=== PATIENT | female | born 1930 | race African-American/Black ===

== ENCOUNTER 2017-02-02 13:26 | Emergency (ER) | payer MEDICARE | END 2017-02-02 14:40 | disposition home or self-care (01) | LOC: ERS 13:26 | DX: R11.0 Nausea (principal); G30.9 Alzheimer's disease, unspecified; F02.80 Dementia in other diseases classified elsewhere, unspecified severity, without behavioral disturbance, psychotic disturbance, mood disturbance, and anxiety; I25.2 Old myocardial infarction; I10 Essential (primary) hypertension; Z79.899 Other long term (current) drug therapy; Z86.73 Personal history of transient ischemic attack (TIA), and cerebral infarction without residual deficits | CPT/HCPCS: 93005 ==

== ENCOUNTER 2017-04-19 16:27 | Inpatient (IN) | payer MEDICARE ==
[2017-04-19 17:06] LABS: #Eosinphils 0.1 thou/uL (0.0-0.7); #Lymphocytes 1.6 thou/uL (1.20-3.40); #Monocytes 0.4 thou/uL (0.11-0.59); #Neutrophils 5.6 thou/uL (1.40-6.50); %Basophils 0.5 % (0.0-1.0); %Eosinophils 1.2 % (0.0-10.0); %Lymphocytes 20.6 % (21.0-51.0); %Monocytes 4.6 % (0.0-10.0); Hematocrit 38.9 % (36.0-47.0); Red Blood Cell (RBC) Count 3.96 mill/uL (4.20-5.40); White Blood Cell (WBC) Count 7.7 thou/uL (4.8-10.8)
[2017-04-19 17:27] LABS: ALT (SGPT) 10 U/L (8-55); AST (SGOT) 19 U/L (5-34); Alkaline Phosphatase 103 U/L (40-150); Anion Gap 14 mmol/L (10-20); BUN (Urea Nitrogen) 24 mg/dL (9.8-20.1); Bilirubin, Total 0.3 mg/dL (0.2-1.2); CK (CPK) 122 U/L (29-168); Calc. Creatinine Clearance 0 mL/min (70-130); Calcium 9.9 mg/dL (7.8-10.44); Carbon Dioxide 18 mmol/L (23-31); Chloride 110 mmol/L (98-107); Estimated GFR-MDRD 46; Globulin 3.5 g/dL (2.4-3.5); Protein, Total 7.4 g/dL (6.0-8.3)
--- NOTE | 2017-04-19 17:28 | CT ---
CT BRAIN 04/19/17 PROVIDED CLINICAL HISTORY: Syncope. FINDINGS: Comparison 06/14/15. The ventricular system is unchanged in size and morphology. There is no evidence for intracranial hem orrhage or mass effect. Extensive chronic microvascular ischemic changes are seen involving the cereb ral white matter. The extracranial soft tissues and osseous structures demonstrate no acute findings. IMPRESSION: No evidence for intracranial hemorrhage or mass effect. POS: [facility]
--- NOTE | 2017-04-19 17:30 | RAD ---
PORTABLE CHEST 04/19/17 PROVIDED CLINICAL HISTORY: Syncope. FINDINGS: Comparison 10/29/15. Cardiac and mediastinal silhouette is within normal limits. Vascular calcification involves the aorti c arch. Multiple calcified granulomata are seen. No focal consolidation, pleural fluid or pneumothora x apparent. IMPRESSION: No evidence for an acute cardiopulmonary process. POS: [facility]
[2017-04-19 17:32] LABS: Troponin I Less than 0.010 ng/mL (< 0.028)
[2017-04-19 17:47] LABS: Bilirubin Negative (Negative); Blood, Urine Negative (Negative); Glucose, Urine (Dipstick) Negative (Negative); Ketone, Urine Negative (Negative); Nitrite Negative (Negative); Protein, Urine (Dipstick) 100 mg/dL (Neg-Trace)
[2017-04-19 17:52] LABS: Bacteria/HPF None Seen HPF (None Seen); Hyaline Casts/LPF 7-10 HYALINE CAST LPF (0-3 Hyaline); RBC/HPF 0-3 HPF (0-3); Squamous Epithelial 0-3 HPF (0-3); WBC/HPF 0-3 HPF (0-3)
[2017-04-19 18:09] LABS: Renal Epithelial None Seen HPF (0-3); Transitional Epithelial NONE SEEN HPF (0-3)
[2017-04-19 21:43] VITALS: BMI 20.4
[2017-04-19] MEDS ORDERED: Ondansetron ODT 4 MG TAB SL PRN (21:44)
[2017-04-19] MEDS ORDERED: Ondansetron HCl/PF 4 MG/2 ML Vial IVP PRN (21:44)
[2017-04-19] MEDS ORDERED: Sodium Chloride 0.9% 1,000 ML IV SCH (21:45)
[2017-04-20] MEDS ORDERED: Acetaminophen 325 MG TAB PO PRN (01:09)
[2017-04-20] MEDS: Albuterol Sulfate 2.5 mg/3 ml Neb NEB SCH ×3 (01:59→03:00)
[2017-04-20] MEDS ORDERED: Haloperidol Lactate 5 MG/ML VIAL IM SCH (02:00)
--- NOTE | 2017-04-20 02:39 | HP ---
PRIMARY CARE PHYSICIAN: Jennifer Sarah M.D. CHIEF COMPLAINT: Loss of consciousness. HISTORY OF PRESENT ILLNESS: Ms. Huber is a pleasant [id number] who was seen at [facility] on 04/20/2017. Patient herself is unable to provide any significant history because of dementia. History was obtain ed from her daughter by the bedside. Patient was with another daughter earlier today, sitting on the couch when she lost consciousness. There is no history of fecal or urinary incontinence. There is no history of tonic-clonic activity. It is reported that patient was yawning quite a bit prior to pa ssing out. REVIEW OF SYSTEMS: Could not be completed, but this patient is unable to provide any significant his tory. PAST MEDICAL HISTORY: Significant for syncopal episode in 05/2015, at which time she had implantable loop recorder placed, mild coronary artery disease, TIA, hypertension, dyslipidemia, legal blindness , and degenerative joint disease. PAST SURGICAL HISTORY: Significant for right carotid endarterectomy in 2004, laparoscopic cholecyste ctomy in 2006, cardiac catheterization in 2004 that showed minimal 2-vessel coronary artery disease a nd implantable loop recorder placed in 05/2015. ALLERGIES: No known drug allergies. CURRENT MEDICATIONS: Clonidine 0.1 mg daily, simvastatin 20 mg daily, clonazepam 0.25 mg daily, nife dipine 60 mg daily. SOCIAL HISTORY: No history of tobacco use, alcohol use, or recreational drug use. CODE STATUS: I discussed code status with the patient's daughter. She is FULL CODE. PHYSICAL EXAMINATION: GENERAL: She is awake and alert, not in acute distress. She appears frail. VITAL SIGNS: Blood pressure is 183/82, pulse is 89. She is breathing at rate of 20 and saturating 9 7% on room air. She is afebrile. EYES: No scleral icterus, no conjunctival pallor. ENT: Moist mucosal membranes, no oropharyngeal erythema or exudates. NECK: Supple, nontender, normal range of movement, trachea is midline. RESPIRATORY: Accessory muscles of breathing are not active. Chest wall movements are symmetrical bi laterally. LUNGS: Clear to auscultation without wheeze, rhonchi, or crepitations. CARDIOVASCULAR: S1 and S2 are heard, regular. Peripheral pulses palpable. No carotid bruit, no per icardial rub. She has a loop recorder implanted over the left chest wall. ABDOMEN: Soft, nontender, bowel sounds heard, no hepatomegaly, no splenomegaly. NEUROLOGIC: Cranial nerves II-XII are intact, deep tendon reflexes are 2+. MUSCULOSKELETAL: Power is 5/5 in all 4 extremities. SKIN: No rashes or subcutaneous nodules. LYMPHATIC: No cervical lymphadenopathy. PSYCHIATRIC: Normal mood, normal affect, patient is oriented to person only, not to place or time. LABORATORY DATA: Ms. Huber's labs and investigations were reviewed. I reviewed her electrocardiogram , which shows normal sinus rhythm, no ST changes to suggest an acute coronary syndrome. I also revie wed her chest x-ray, which does not show any pulmonary infiltrates. She also had a CT scan of the br ain without contrast, which did not reveal any intracranial hemorrhage or mass affect. Laboratory in vestigation show normal white count, normal hemoglobin, normal platelet count, normal sodium, elevate d potassium of 5.9, elevated creatinine of 1.31, last known creatinine 1.23 on 01/29/2017, normal oriana er profile, and urinalysis, which is positive for protein and hyaline casts. ASSESSMENT AND PLAN: Ms. Huber is a pleasant 87-year-old lady who was seen at [facility] on 04/20/2017. Her problem list includes: 1. Syncope: Ms. Huber appears to have had an episode of recurrent syncope. She will be admitted to the hospital on observation status for telemetry monitoring. We will consult Cardiology Service for their opinion and help with management. We will also consult Neurology Service to rule out neurologi c cause of syncope. 2. Hyperkalemia: Her potassium is elevated. There are no EKG changes. We will treat her with Melani xalate and beta-agonist nebulizers and recheck her potassium level. 3. Alzheimer's dementia: Appears to be stable. 4. Dyslipidemia: Continue statin. 5. Hypertension: Continue home medications, monitor vital signs, and titrate antihypertensives as n eeded. Many thanks for allowing me to participate in your patient's care. Please feel free to contact me wi th any questions or concerns. LEVEL OF RISK: High. LEVEL OF COMPLEXITY: High.
[2017-04-20 07:54] LABS: #Monocytes 0.6 thou/uL (0.11-0.59); #Neutrophils 8.5 thou/uL (1.40-6.50); %Basophils 0.3 % (0.0-1.0); %Eosinophils 0.1 % (0.0-10.0); %Monocytes 5.7 % (0.0-10.0); Hematocrit 32.9 % (36.0-47.0); Red Blood Cell (RBC) Count 3.41 mill/uL (4.20-5.40); White Blood Cell (WBC) Count 10.1 thou/uL (4.8-10.8)
[2017-04-20 08:07] LABS: Anion Gap 14 mmol/L (10-20); BUN (Urea Nitrogen) 22 mg/dL (9.8-20.1); Calc. Creatinine Clearance 21 mL/min (70-130); Calcium 9.4 mg/dL (7.8-10.44); Carbon Dioxide 17 mmol/L (23-31); Chloride 112 mmol/L (98-107); Estimated GFR-MDRD 45
--- NOTE | 2017-04-20 08:50 | CON ---
DATE OF CONSULTATION: 04/20/2017 IMPRESSION: Recurrent syncopal events likely secondary to vasovagal episodes. PLAN: Follow up with Cardiology to evaluate loop recorder and see what recommendations they may have . HISTORY: Ms. Huber is an 87-year-old black female with a past history of hypertension and multiple sy ncopal events. She has been seen by Cardiology in the past. She has a loop recorder in place. Benito ramos reports she has had multiple brief episodes where she becomes limp and unresponsive. The most rec ent event was a little more intense and so they decided to bring her in. She was sitting on the couc h when she slumped over and became unresponsive. She became diaphoretic and when she awoke had diarr hea. She upon awakening did not have any complaints of chest pain, shortness of breath or abdominal pain, there was no associated headache, no vertigo. She has had brief episodes similar to this in th e past and the etiology has not been elucidated. She has never had any seizure-like episodes associa bertha with this. She had a CT scan of the brain on admission which was only notable for extensive of s ubcortical ischemic changes. Generally she gets around on a walker, although she has difficulty due to poor vision. PAST MEDICAL HISTORY: As per chart. SOCIAL HISTORY: No tobacco or alcohol use. FAMILY HISTORY: Noncontributory. ALLERGIES: None. MEDICATION LIST: Reviewed. REVIEW OF SYSTEMS: The patient had no particular complaints at this point. PHYSICAL EXAMINATION: GENERAL: She is a thin elderly lady lying in bed in no distress. HEENT: Pupils are irregular and nonreactive. Conjunctivae are clear. Oropharynx is clear. NECK: Supple, no lymphadenopathy noted. EXTREMITIES: No cyanosis noted. NEUROLOGIC: She is alert and cooperative. Her speech is fluent and clear. She has poor visual acui ty, but otherwise has nothing focal on exam. She has no abnormal movements. Gait was not tested. IMAGING: Imaging was reviewed. LABORATORY STUDIES: Reviewed. SUMMARY: I do not think that any acute neurologic event has occurred. This appears to be more cardi ovascular.
[2017-04-20] MEDS ORDERED: NIFEdipine XL 30 MG TAB PO SCH (09:00)
[2017-04-20] MEDS ORDERED: cloNIDine 0.1 MG TAB PO SCH (09:00)
[2017-04-20] MEDS: Enoxaparin Sodium 30 MG/0.3 ML SYRINGE SC SCH (09:01)
--- NOTE | 2017-04-20 10:46 | PDOC.PN ---
- Subjective Encounter Start Date: 04/20/17 Encounter Start Time: 13:00 Subjective: is amb with rw and assistance in room -: no chest pain or sob - Objective Resuscitation Status: Resuscitation Status FULL:Full Resuscitation MAR Reviewed: Yes Vital Signs & Weight: Vital Signs (12 hours) Temp Pulse Resp BP BP Pulse Ox 04/20/17 09:02 135/71 04/20/17 09:01 102 H 135/71 04/20/17 07:48 98.5 F 102 H 16 123/76 98 04/20/17 03:00 87 16 100 04/20/17 02:28 88 16 100 04/20/17 01:59 85 16 98 Weight Weight 104 lb 6.4 oz Result Diagrams: 04/20/17 07:41 04/20/17 07:41 Phys Exam - Physical Examination HEENT: PERRLA, moist MMs Neck: no JVD, supple Respiratory: no wheezing, no rales Cardiovascular: RRR, no significant murmur Gastrointestinal: soft, non-tender, positive bowel sounds Musculoskeletal: no edema, pulses present Neurological: non-focal, moves all 4 limbs Dx/Plan (1) Syncope Code(s): R55 - SYNCOPE AND COLLAPSE Status: Acute (2) DEMETRIA (acute kidney injury) Code(s): N17.9 - ACUTE KIDNEY FAILURE, UNSPECIFIED Status: Acute (3) Dehydration Code(s): E86.0 - DEHYDRATION Status: Acute (4) Metabolic acidosis Code(s): E87.2 - ACIDOSIS Status: Acute (5) CAD (coronary artery disease) Code(s): I25.10 - ATHSCL HEART DISEASE OF [place] CORONARY ARTERY W/O ANG PCTRS Status: Chronic Qualifiers: Coronary Disease-Associated Artery/Lesion type: [place] artery [place] vs. transplanted heart: [place] heart Associated angina: without angina Qualified Code(s): I25.10 - Atherosclerotic heart disease of [place] coronary artery without angina pectoris (6) H/O carotid endarterectomy Code(s): Z98.890 - OTHER SPECIFIED POSTPROCEDURAL STATES Status: Chronic (7) Hyperkalemia Code(s): E87.5 - HYPERKALEMIA Status: Acute (8) Anemia Code(s): D64.9 - ANEMIA, UNSPECIFIED Status: Chronic Qualifiers: Anemia type: unspecified type Qualified Code(s): D64.9 - Anemia, unspecified (9) CKD (chronic kidney disease) stage 2, GFR 60-89 ml/min Code(s): N18.2 - CHRONIC KIDNEY DISEASE, STAGE 2 (MILD) Status: Chronic (10) HLD (hyperlipidemia) Code(s): E78.5 - HYPERLIPIDEMIA, UNSPECIFIED Status: Chronic Qualifiers: Hyperlipidemia type: unspecified Qualified Code(s): E78.5 - Hyperlipidemia , unspecified (11) HTN (hypertension) Code(s): I10 - ESSENTIAL (PRIMARY) HYPERTENSION Status: Chronic Qualifiers: Hypertension type: essential hypertension Qualified Code(s): I10 - Essential (primary) hypertension - Plan is on asp, procardia and lipitor -: await cardio opinion, has loop recorder -: gentle hydration, orthostatic BP -: adv age, is seen amb in room -: 05/2013 echo showed normal ef * . Review of Systems - Medications/Allergies Allergies/Adverse Reactions: Allergies Allergy/AdvReac Type Severity Reaction Status Date / Time No Known Allergies Allergy Verified 05/31/13 16:03 Medications: Current Medications Acetaminophen (Tylenol) 650 mg PO Q4H PRN PRN Reason: Headache/Fever or Pain Atorvastatin Calcium (Lipitor) 10 mg PO QPM [facility] Brimonidine Tartrate (Alphagan 0.2% [facility]) 1 drop EA EYE DAILY [facility] Clonazepam (Klonopin) 0.25 mg PO HS [facility] Enoxaparin Sodium (Lovenox) 30 mg SC 0900 [facility] Last Admin: 04/20/17 09:01 Dose: 30 mg Nifedipine (Procardia Xl) 30 mg PO BID [facility] Last Admin: 04/20/17 09:01 Dose: 30 mg
[2017-04-20] MEDS: Sodium Chloride 0.9% 1,000 ML IV SCH (13:09)
--- NOTE | 2017-04-20 13:17 | ULT ---
BILATERAL CAROTID DUPLEX ULTRASOUND: Date: 04/20/17 HISTORY: Syncope. FINDINGS: Real-time color Doppler evaluation of the right and left carotid systems was performed. This showed p laque formation bilaterally. On the right side, peak systolic velocities of the common carotid were 36 cm/second. Internal carotid velocities were 38 cm/second and external carotid velocities were 42 cm/second. On the left side, peak systolic velocities of the common carotid were 59 cm/second. Internal carotid velocities were 74 cm/second and external carotid velocities were 31 cm/second. Vertebral flow was antegrade bilaterally. IMPRESSION: No evidence of hemodynamically significant stenosis of either internal carotid artery. Overall veloci ty measurements are somewhat diminished, but in reviewing a previous 2016 study, they are fairly sim ilar to that exam. POS: [facility]
[2017-04-20] MEDS: Brimonidine Tartrate 0.2% Ophth Soln 5 ml Bottle EA EYE SCH (16:35)
[2017-04-20] MEDS ORDERED: ALPRAZolam 0.5 MG TAB PO PRN (17:39)
[2017-04-20] MEDS ORDERED: Atorvastatin Calcium 10 MG TAB PO SCH (21:00)
[2017-04-20] MEDS ORDERED: clonazePAM 0.5 MG TAB PO SCH (21:00)
[2017-04-21 04:00] LABS: #Eosinphils 0.1 thou/uL (0.0-0.7); #Lymphocytes 1.7 thou/uL (1.20-3.40); #Monocytes 0.5 thou/uL (0.11-0.59); #Neutrophils 2.8 thou/uL (1.40-6.50); %Basophils 0.9 % (0.0-1.0); %Eosinophils 2.5 % (0.0-10.0); %Lymphocytes 33.1 % (21.0-51.0); %Monocytes 8.8 % (0.0-10.0); Hematocrit 31.3 % (36.0-47.0); Mean Platelet Volume 6.1 fL (7.4-10.4); Red Blood Cell (RBC) Count 3.21 mill/uL (4.20-5.40); White Blood Cell (WBC) Count 5.1 thou/uL (4.8-10.8)
[2017-04-21 04:02] LABS: Anion Gap 11 mmol/L (10-20); BUN (Urea Nitrogen) 24 mg/dL (9.8-20.1); Calc. Creatinine Clearance 24 mL/min (70-130); Calcium 8.7 mg/dL (7.8-10.44); Carbon Dioxide 21 mmol/L (23-31); Chloride 113 mmol/L (98-107); Estimated GFR-MDRD 52
[2017-04-21 08:16] VITALS: TEMP 98.9
[2017-04-21] MEDS: Brimonidine Tartrate 0.2% Ophth Soln 5 ml Bottle EA EYE SCH (08:48)
[2017-04-21] MEDS: Enoxaparin Sodium 30 MG/0.3 ML SYRINGE SC SCH (08:48)
[2017-04-21] MEDS: Sodium Chloride 0.9% 1,000 ML IV SCH (08:49)
[2017-04-21] MEDS ORDERED: NIFEdipine XL 30 MG TAB PO SCH (09:00)
[2017-04-21 09:55] VITALS: BP 125/84
--- NOTE | 2017-04-21 12:10 | PDOC.PN ---
- Subjective Encounter Start Date: 04/21/17 Encounter Start Time: 08:45 Subjective: feels good, wants to go home -: is amb in room with help from family - Objective MAR Reviewed: Yes Vital Signs & Weight: Vital Signs (12 hours) Temp Pulse Resp BP BP BP BP 04/21/17 11:16 04/21/17 09:54 78 131/88 147/76 H 125/84 04/21/17 08:47 75 04/21/17 08:00 98.9 F 75 15 143/77 H 04/21/17 04:20 97.7 F 69 16 109/61 04/21/17 02:20 Pulse Ox 04/21/17 11:16 98 04/21/17 09:54 04/21/17 08:47 04/21/17 08:00 95 04/21/17 04:20 95 04/21/17 02:20 97 I&O: 04/20/17 04/21/17 04/22/17 06:59 06:59 06:59 Intake Total 1198 240 Balance 1198 240 Result Diagrams: 04/21/17 03:40 04/21/17 03:40 Phys Exam - Physical Examination HEENT: PERRLA, moist MMs Neck: no JVD, supple Respiratory: no wheezing, no rales Cardiovascular: RRR, no significant murmur Gastrointestinal: soft, non-tender, positive bowel sounds Musculoskeletal: no edema, pulses present Neurological: non-focal, moves all 4 limbs Psychiatric: A&O x 3 Dx/Plan (1) Syncope Code(s): R55 - SYNCOPE AND COLLAPSE Status: Acute (2) DEMETRIA (acute kidney injury) Code(s): N17.9 - ACUTE KIDNEY FAILURE, UNSPECIFIED Status: Resolved (3) Dehydration Code(s): E86.0 - DEHYDRATION Status: Resolved (4) Metabolic acidosis Code(s): E87.2 - ACIDOSIS Status: Acute (5) CAD (coronary artery disease) Code(s): I25.10 - ATHSCL HEART DISEASE OF [place] CORONARY ARTERY W/O ANG PCTRS Status: Chronic Qualifiers: Coronary Disease-Associated Artery/Lesion type: [place] artery [place] vs. transplanted heart: [place] heart Associated angina: without angina Qualified Code(s): I25.10 - Atherosclerotic heart disease of [place] coronary artery without angina pectoris (6) H/O carotid endarterectomy Code(s): Z98.890 - OTHER SPECIFIED POSTPROCEDURAL STATES Status: Chronic (7) Hyperkalemia Code(s): E87.5 - HYPERKALEMIA Status: Resolved (8) Anemia Code(s): D64.9 - ANEMIA, UNSPECIFIED Status: Chronic Qualifiers: Anemia type: unspecified type Qualified Code(s): D64.9 - Anemia, unspecified (9) CKD (chronic kidney disease) stage 2, GFR 60-89 ml/min Code(s): N18.2 - CHRONIC KIDNEY DISEASE, STAGE 2 (MILD) Status: Chronic (10) HLD (hyperlipidemia) Code(s): E78.5 - HYPERLIPIDEMIA, UNSPECIFIED Status: Chronic Qualifiers: Hyperlipidemia type: unspecified Qualified Code(s): E78.5 - Hyperlipidemia , unspecified (11) HTN (hypertension) Code(s): I10 - ESSENTIAL (PRIMARY) HYPERTENSION Status: Chronic Qualifiers: Hypertension type: essential hypertension Qualified Code(s): I10 - Essential (primary) hypertension - Plan has positive orthostasis due to dehydration, was on iv fluids from yesterda -: may dc home -: pt is wanting to go home from yesterday, counselled reg orthostasis/slow ge -: -tting up etc. Multiple family members in room. -: home meds, no clonidine and procardia is daily. * .
--- NOTE | 2017-04-22 00:03 | DIS ---
DATE OF ADMISSION: 04/20/2017 DATE OF DISCHARGE: 04/21/2017 DISCHARGE DISPOSITION: To home. PRIMARY DISCHARGE DIAGNOSES: Syncope secondary to orthostasis, resolved; acute kidney injury due to dehydration, resolved; metabolic acidosis due to kidney injury, resolving. SECONDARY DISCHARGE DIAGNOSES: Coronary artery disease; history of carotid endarterectomy; chronic a nemia; chronic kidney disease, stage 2; dyslipidemia, and hypertension. PROCEDURES DONE DURING HOSPITALIZATION: CT brain done showed no intracranial mass or hemorrhage. Ch est x-ray done showed no acute cardiopulmonary abnormalities. Carotid Doppler done showed no hemodyn amically significant stenosis. Urine culture no growth. H&H 10 and 31, platelet count 285. White c ount of 5, MCV 97. Discharge BUN and creatinine 24 and 1.1. Troponin x1 was negative. Initial pota ssium was 5.9, discharge numbers of 4.5. Orthostatic blood pressures were obtained on the showe d 120/80 sitting, 157/68 supine. DISCHARGE MEDICATIONS: The patient to continue aspirin 81 mg p.o. daily, Alphagan eyedrops as before , clonazepam 0.25 mg p.o. at bedtime, Procardia-XL 30 mg p.o. daily, simvastatin 20 mg p.o. q.p.m. ALLERGIES: No known drug allergies. INPATIENT CONSULTS: Dr. Garzon for Cardiology and Dr. Maldonado for Neurology. BRIEF COURSE DURING HOSPITALIZATION: The patient initially got admitted on the after she appare ntly lost consciousness while sitting on the couch. There was no seizure episodes or chest pain. In view of this and prior history of syncope, the patient was admitted to telemetry. She had severe or thostasis along with dehydration, acute kidney injury, and metabolic acidosis. All of this is resolv ing. She has had consultation with Dr. Maldonado for Neurology and Dr. Garzon for Cardiology. Her c lonidine has been discontinued and her Procardia-XL was switched to once daily instead of twice. The patient is ambulating with help in the room. She is wanting to go home for Emma. 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 She is otherwise hemodynamically stable and the family is wanting to take her home. Home health with PT will be set u p once the holiday phase is over by case management. Please see a face to face documentation on [facility] for the day of discharge.
== END 2017-04-21 12:48 | disposition home health service (06) | DRG 312 ==
LOC: ERS 16:27 → 2SW 19:00 → OBSVTOIN 04-20 13:05
PROVIDERS: ADMIT Internal Medicine Infectious Disease; ATTEND Internal Medicine Infectious Disease
DX: I95.1 Orthostatic hypotension (principal); N17.9 Acute kidney failure, unspecified; E87.2 Acidosis; G45.9 Transient cerebral ischemic attack, unspecified; G30.9 Alzheimer's disease, unspecified; F03.90 Unspecified dementia, unspecified severity, without behavioral disturbance, psychotic disturbance, mood disturbance, and anxiety; E87.5 Hyperkalemia; E86.0 Dehydration; I25.10 Atherosclerotic heart disease of native coronary artery without angina pectoris; D64.9 Anemia, unspecified; N18.2 Chronic kidney disease, stage 2 (mild); E78.5 Hyperlipidemia, unspecified; I12.9 Hypertensive chronic kidney disease with stage 1 through stage 4 chronic kidney disease, or unspecified chronic kidney disease; M19.90 Unspecified osteoarthritis, unspecified site; F02.80 Dementia in other diseases classified elsewhere, unspecified severity, without behavioral disturbance, psychotic disturbance, mood disturbance, and anxiety
CPT/HCPCS: 36415; 51701; 70450; 71010; 80048; 80053; 81003; 81015; 82553; 83735; 84484; 85025; 87086; 93005; 93880; 94640; 94760; 96360; A4353; J1630; J1650; J7611

== ENCOUNTER 2017-05-04 10:17 | Outpatient (CLI) | payer MEDICARE | END 2017-05-04 10:18 | disposition home or self-care (01) | LOC: BICRAD 10:17 | PROVIDERS: ATTEND Internal Medicine | DX: J40 Bronchitis, not specified as acute or chronic (principal); E78.5 Hyperlipidemia, unspecified; I10 Essential (primary) hypertension; Z79.899 Other long term (current) drug therapy | CPT/HCPCS: 71046; 81001 ==

== ENCOUNTER 2017-05-06 20:48 | Emergency (ER) | payer MEDICARE ==
[2017-05-06 21:18] LABS: #Basophils 0.1 thou/uL (0.0-0.2); #Eosinphils 0.1 thou/uL (0.0-0.7); #Lymphocytes 1.8 thou/uL (1.20-3.40); #Monocytes 0.4 thou/uL (0.11-0.59); #Neutrophils 7.2 thou/uL (1.40-6.50); %Basophils 0.7 % (0.0-1.0); %Eosinophils 1.1 % (0.0-10.0); %Lymphocytes 18.3 % (21.0-51.0); %Monocytes 4.5 % (0.0-10.0); %Neutrophils 75.4 % (42.0-75.0); Hemoglobin 11.2 g/dL (12.0-16.0); Mean Corpuscular HGB CONC 33.2 g/dL (32.0-36.0); Mean Corpuscular Hemoglobin 31.9 pg (27.0-31.0); Mean Platelet Volume 6.3 fL (7.4-10.4); Platelet Count 345 thou/uL (130-400); RBC Distribution Width 12.3 % (11.5-14.5); White Blood Cell (WBC) Count 9.6 thou/uL (4.8-10.8)
[2017-05-06 21:27] LABS: PTT 26.8 SEC (22.9-36.1); Prothrombin Time 12.8 SEC (12.0-14.7)
[2017-05-06 21:41] LABS: ALT (SGPT) 12 U/L (8-55); AST (SGOT) 26 U/L (5-34); Albumin 3.5 g/dL (3.4-4.8); Alkaline Phosphatase 89 U/L (40-150); Anion Gap 14 mmol/L (10-20); BUN (Urea Nitrogen) 29 mg/dL (9.8-20.1); Bilirubin, Total 0.2 mg/dL (0.2-1.2); Calc. Creatinine Clearance 0 mL/min (70-130); Carbon Dioxide 18 mmol/L (23-31); Chloride 108 mmol/L (98-107); Estimated GFR-MDRD 45; Globulin 3.7 g/dL (2.4-3.5); Glucose 118 mg/dL (83-110); Potassium 5.2 mmol/L (3.5-5.1); Protein, Total 7.2 g/dL (6.0-8.3); Sodium 135 mmol/L (136-145)
[2017-05-06 21:45] LABS: CKMB 1.1 ng/mL (0-6.6); Troponin I Less than 0.010 ng/mL (< 0.028)
[2017-05-06 22:02] LABS: Bilirubin Negative (Negative); Blood, Urine Negative (Negative); Clarity CLEAR (Clear); Glucose, Urine (Dipstick) Negative (Negative); Leukocyte Negative (Negative); Nitrite Negative (Negative); Protein, Urine (Dipstick) 100 mg/dL (Neg-Trace); Specific Gravity, Urine 1.019 (1.002-1.036)
[2017-05-06 22:04] LABS: Bacteria/HPF None Seen HPF (None Seen); Hyaline Casts/LPF 4-6 HYALINE CAST LPF (0-3 Hyaline); Pathc Cast-AUWi Flag 0.54 (0-2.49); RBC/HPF 0-3 HPF (0-3); Squamous Epithelial 0-3 HPF (0-3); WBC/HPF 0-3 HPF (0-3)
--- NOTE | 2017-05-06 22:57 | CT ---
CT HEAD NONCONTRAST: Clinical history: Stroke, possible seizure, altered mental status. FINDINGS: Reference is made to 04-19-17 exam. Re-demonstration of moderate to severe chronic microvascular ischemic disease. Ventricular system is stable in size. No intracranial hemorrhage, mass effect, or midline shift. Re-demonstration of multip le dural based calcifications, intracranially. There is paranasal sinus fluid within the left major s phenoid air cell. Scattered mild paranasal sinus mucosal thickening is present. IMPRESSION: 1. No interval acute intracranial abnormality. 2. Re-demonstration of prominent chronic microvascular ischemic disease. POS: [facility]
--- NOTE | 2017-05-06 22:59 | RAD ---
CHEST ONE VIEW: History: Syncope. Comparison: 04-19-17 FINDINGS: Multiple old calcified pulmonary nodules. Scarring left lung base. Low grade S-shaped scoliosis. No focal airspace consolidation, pneumothorax, or effusion. IMPRESSION: No acute intrathoracic abnormality. POS: [facility]
== END 2017-05-06 23:10 | disposition home or self-care (01) ==
LOC: ERS 20:48
DX: E86.0 Dehydration (principal); R55 Syncope and collapse; G30.9 Alzheimer's disease, unspecified; F02.80 Dementia in other diseases classified elsewhere, unspecified severity, without behavioral disturbance, psychotic disturbance, mood disturbance, and anxiety; E78.5 Hyperlipidemia, unspecified; Z86.73 Personal history of transient ischemic attack (TIA), and cerebral infarction without residual deficits; M06.9 Rheumatoid arthritis, unspecified; I25.2 Old myocardial infarction; I10 Essential (primary) hypertension; Z79.82 Long term (current) use of aspirin; Z79.899 Other long term (current) drug therapy
CPT/HCPCS: 51701; 70450; 71045; 80053; 81003; 81015; 82553; 84484; 85025; 85610; 85730; 93005; 96360; 96361; A4353

== ENCOUNTER 2017-06-17 12:04 | Observation (INO) | payer MEDICARE ==
[2017-06-17 12:41] LABS: Base Excess-Venous -2.5 mmol/L (-30.0-30.0); Bicarbonate (HCO3v) 24.4 mmol/L (1.0-85.0); CO2 Tension (PvCO2) 48.9 mmHg (41.0-51.0); Calcium, Ionized 1.18 mmol/L (1.12-1.32); Hemoglobin - Calc 15.2 g/dL (12.0-18.0); Lactate 1.52 mmol/L (0.50-2.20); O2 Tension (PvO2) 27.3 mmHg (35.0-45.0); Potassium 5.5 mmol/L (3.4-4.7); T. Carbon Dioxide 25.9 mmol/L (1.0-85.0); pH (Venous) 7.306 (7.35-7.45); vO2 Saturation-calc 44.4 % (0.0-100.0)
--- NOTE | 2017-06-17 12:50 | CT ---
CT OF THE BRAIN WITHOUT CONTRAST: COMPARISON: 05/06/17. HISTORY: Left-sided facial drooping that started this morning. Last seemed normal 4 hours ago. Stroke alert. TECHNIQUE: Multiple contiguous axial images were obtained in a CT of the brain without contrast. Coronal reform ats were performed. FINDINGS: There are stable scattered hypodensities in the subcortical and periventricular white matter, likely secondary to small-vessel ischemic disease. No large confluent infarction is seen. There is no evid ence of hydrocephalus, intracranial hemorrhage, or extraaxial fluid collection. The calvarium and overlying soft tissues are unremarkable. The visualized paranasal sinuses and mast oid air cells are well aerated. IMPRESSION: 1. No evidence of acute intracranial abnormality. 2. Small-vessel ischemic disease. Dr. West notified of the findings at 12:23 p.m. on 06/17/17. CODE QUYNH POS: [facility]
[2017-06-17] MEDS ORDERED: ISOVUE-370 76%-LOCM 1 ML ONE (13:04)
[2017-06-17 13:10] LABS: CKMB 1.5 ng/mL (0-6.6); Troponin I Less than 0.010 ng/mL (< 0.028)
[2017-06-17 13:11] LABS: ALT (SGPT) 11 U/L (8-55); AST (SGOT) 27 U/L (5-34); Alkaline Phosphatase 124 U/L (40-150); Anion Gap 15 mmol/L (10-20); BUN (Urea Nitrogen) 21 mg/dL (9.8-20.1); Bilirubin, Total 0.4 mg/dL (0.2-1.2); Calc. Creatinine Clearance 0 mL/min (70-130); Calcium 9.6 mg/dL (7.8-10.44); Carbon Dioxide 19 mmol/L (23-31); Chloride 110 mmol/L (98-107); Estimated GFR-MDRD 54; Glucose 78 mg/dL (83-110); Potassium 5.5 mmol/L (3.5-5.1); Sodium 138 mmol/L (136-145)
[2017-06-17 13:30] LABS: #Basophils 0.1 thou/uL (0.0-0.2); #Eosinphils 0.1 thou/uL (0.0-0.7); #Lymphocytes 1.7 thou/uL (1.20-3.40); #Monocytes 0.4 thou/uL (0.11-0.59); #Neutrophils 3.6 thou/uL (1.40-6.50); %Eosinophils 2.3 % (0.0-10.0); %Lymphocytes 29.3 % (21.0-51.0); %Monocytes 6.2 % (0.0-10.0); %Neutrophils 61.3 % (42.0-75.0); Hemoglobin 12.9 g/dL (12.0-16.0); Mean Corpuscular HGB CONC 31.6 g/dL (32.0-36.0); Mean Corpuscular Hemoglobin 30.8 pg (27.0-31.0); Mean Corpuscular Volume 97.6 fl (81.0-99.0); Mean Platelet Volume 6.7 fL (7.4-10.4); Platelet Count 339 thou/uL (130-400); RBC Distribution Width 12.4 % (11.5-14.5); White Blood Cell (WBC) Count 5.9 thou/uL (4.8-10.8)
[2017-06-17 13:36] LABS: PTT 31.1 SEC (22.9-36.1); Prothrombin Time 13.3 SEC (12.0-14.7)
[2017-06-17 13:46] LABS: CK (CPK) 89 U/L (29-168); Lipase 22 U/L (8-78)
--- NOTE | 2017-06-17 14:43 | CT ---
CT ARTERIOGRAM NECK WITH IV CONTRAST AND 3D MIP IMAGING CT ARTERIOGRAM AND CT PERFUSION HEAD WITH IV CONTRAST AND 3D MIP IMAGING CT HEAD WITH IV CONTRAST: History: DVA. Left facial droop. FINDINGS: No abnormal areas of contrast enhancement of the brain are apparent. There is normal branching of the great vessels at the aortic arch. Mild arterial calcification is matt arent. Images including the neck show lobular cysts arising from each thyroid lobe. There are degenerative c hanges of the cervical spine. Good contrast flow is demonstrated into each vertebral artery and each carotid system. On the right, the common carotid and internal carotid arteries are widely patent. There is a 1.4 cm l ength absence of contrast within the origin of the right external carotid artery that may represent c omplete occlusion with distal reconstitution or a high grade stenosis. The left internal and external carotid arteries are widely patent. Perfusion images show no areas of significantly decreased arterial perfusion. IMPRESSION: 1. No evidence of acute ischemia. 2. Atherosclerosis. 3. No evidence of significant extracranial internal carotid artery stenosis. Incidental note is made of high grade stenosis or occlusion of the right external carotid artery. 4. Findings were called to Dr. West at 1255 hours. Code CR POS: [facility]
--- NOTE | 2017-06-17 15:04 | RAD ---
CHEST ONE VIEW: History: Chest pain. Comparison: 05-06-17 FINDINGS: Cardiac silhouette and pulmonary vasculature are unremarkable. Calcified granulomata are consistent w ith healed granulomatous disease. Mediastinum is midline. Lungs are hyperinflated. There is no lobar consolidation or evidence of pneumothorax. IMPRESSION: No active cardiopulmonary abnormalities are demonstrated. POS: [facility]
[2017-06-17 17:47] VITALS: BMI 17.9
[2017-06-17] MEDS ORDERED: hydrALAZINE 20 MG/ML VIAL SLOW IVP PRN (17:54)
[2017-06-17] MEDS ORDERED: hydrALAZINE 20 MG/ML VIAL SLOW IVP SCH (18:00)
--- NOTE | 2017-06-17 19:57 | HP ---
CHIEF COMPLAINT: Left-sided facial weakness. PRIMARY CARE PHYSICIAN: Jennifer Sarah M.D. HISTORY OF PRESENT ILLNESS: The patient is a very pleasant 87-year-old -Iranian female who p resents to the hospital with possible TIA. The patient's daughter who was at the bedside states that patient woke up this morning, was not feeling well. She went to the bathroom and on her way out, wing golden just told her daughter that she was not feeling well. The daughter noticed that the patient had so me left-sided lower lip droopiness and also stated "she had a knot around her left upper eye area." The patient denies any fevers or chills. The patient denies any nausea, vomiting or diarrhea. No si ck contacts. Patient states that she was in her normal health prior to this incident. The patient c urrently is back to her baseline and does not have any droopiness that is noted and she states she fe els really well. PAST MEDICAL HISTORY: Significant for 1. Syncopal episodes. She does have a loop recorder that was implanted about a couple of years ago. She has mild coronary artery disease. 2. TIA. 3. Hypertension. 4. Dyslipidemia. 5. 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 PAST SURGICAL HISTORY: Significant for carotid endarterectomy in 2004, laparoscopic cholecystectomy in 2006, cardiac catheterization in 2004 that showed minimal 2-vessel coronary artery disease and imp lanted loop recorder which was placed in 2015. ALLERGIES: No known drug allergies. CURRENT MEDICATIONS: As the followin. Patient takes baby aspirin daily. 2. She takes Procardia 60 mg daily. 3. She takes clonazepam 0.25 mg p.o. at bedtime and simvastatin 20 mg daily. REVIEW OF SYSTEMS: A 10 point review of systems negative except for the ones mentioned above. Curre ntly, patient is asymptomatic. PHYSICAL EXAMINATION: VITAL SIGNS: Patient's blood pressure is 202/96 currently, temperature of 97.6, heart rate of 90, 18 , 97% on room air. GENERAL: She is awake, alert, oriented x3, does not appear in any distress. CARDIOVASCULAR: S1, S2 present. No murmurs, rubs or gallops. LUNGS: Clear to auscultation. No rhonchi, wheezes noted. ABDOMEN: Soft, nontender. Bowel sounds are present x2. NEUROLOGIC: Cranial nerves II-XI are intact. She has 5/5 bilateral upper extremity and bilateral lo wer extremity strength. Sensation is intact. Tqsozd-bp-gqhz, hiur-lx-zmur is intact. No facial virginie op is noted. SKIN: No rashes noted. PSYCHIATRIC: Normal mood, normal affect. LABORATORY DATA: As of the following: WBC is 5.9, hemoglobin of 12.9, hematocrit of 41.0, platelets of 339. Chemistry: Sodium of 138, potassium of 5.5, chloride of 110, bicarb of 19, anion gap of 15 , creatinine 1.14. Troponin initially was negative. Lipase is 22. She did have a CT brain which in dicated no evidence of acute intracranial abnormalities or small vessel ischemic disease. She also h ad a CTA of the neck that indicated no evidence of acute ischemia, atherosclerosis. No evidence of s ignificant extracranial, intracranial artery stenosis. The left internal external carotid arteries w ere widely patent; however, there was no evidence of significant extracranial, intracranial artery st enosis. Incidental note is made of high-grade stenosis or occlusion of the right external carotid ar jonathon. ASSESSMENT AND PLAN: The patient is a very pleasant 87-year-old female who presents to the hospital with a possible transient ischemic attack. 1. Possible transient ischemic attack. CT head was negative. She did have a CTA which did not show any internal carotid occlusion; however, there is noted to have some delay in contrast to the right external carotid artery. We will continue the patient's simvastatin. We will continue aspirin. The patient may require Plavix. We will check an echocardiogram. We will get an MRI brain. She does h ave a loop recorder. We will continue to monitor on tele. 2. Hyperkalemia. No significant changes on EKG. We will treat with Kayexalate. 3. Alzheimer's dementia, appears to be stable. 4. Dyslipidemia. We will continue statin. 5. Hypertension. We will start the patient's home medication and give p.r.n.
[2017-06-17] MEDS ORDERED: Simvastatin 20 MG TAB PO SCH (21:00)
[2017-06-17] MEDS: clonazePAM 0.5 MG TAB PO SCH (21:06)
[2017-06-17] MEDS: Atorvastatin Calcium 10 MG TAB PO SCH (21:06)
[2017-06-18 05:31] LABS: Cardiac Risk 2.1 (Less than 4.5)
[2017-06-18 09:45] LABS: Anion Gap 14 mmol/L (10-20); BUN (Urea Nitrogen) 27 mg/dL (9.8-20.1); Calc. Creatinine Clearance 21 mL/min (70-130); Calcium 9.1 mg/dL (7.8-10.44); Carbon Dioxide 20 mmol/L (23-31); Chloride 108 mmol/L (98-107); Estimated GFR-MDRD 49; Glucose 77 mg/dL (83-110); Potassium 4.6 mmol/L (3.5-5.1); Sodium 137 mmol/L (136-145)
[2017-06-18] MEDS: NIFEdipine XL 60 MG TAB PO SCH (10:01)
[2017-06-18] MEDS: Enoxaparin Sodium 30 MG/0.3 ML SYRINGE SC SCH (10:02)
[2017-06-18] MEDS: Aspirin 81 mg Enteric Coated Tablet PO SCH (10:02)
[2017-06-18 10:36] LABS: Band 1 % (5-11); Eosinophils 1 % (0-10); Hemoglobin 10.9 g/dL (12.0-16.0); Lymphocytes 19 % (21-51); MDiff Complete? YES; Mean Corpuscular HGB CONC 32.4 g/dL (32.0-36.0); Mean Corpuscular Hemoglobin 30.9 pg (27.0-31.0); Mean Corpuscular Volume 95.4 fl (81.0-99.0); Mean Platelet Volume 6.9 fL (7.4-10.4); Monocytes 1 % (0-10); Neutrophil 78 % (42-75); Platelet Count 325 thou/uL (130-400); RBC Distribution Width 12.6 % (11.5-14.5); Red Blood Cell (RBC) Count 3.53 mill/uL (4.20-5.40); White Blood Cell (WBC) Count 6.1 thou/uL (4.8-10.8)
--- NOTE | 2017-06-18 10:58 | MRI ---
MRI BRAIN WITHOUT CONTRAST: Date: 06/18/17 HISTORY: Left-sided facial drooping. FINDINGS: Correlation made with previous day's CT scan. Comparison made with MRI of 06/01/13. Changes of cortical atrophy are present. There are multiple foci of T2 prolongation in the periventri cular white matter consistent with chronic small vessel ischemic disease. No restricted diffusion is seen. No evidence of infarct, hemorrhage, midline shift, or abnormal extra-axial fluid collections ar e noted. The visualized paranasal sinuses and mastoid air cells are well aerated. IMPRESSION: 1. No evidence of acute intracranial process. 2. Chronic small vessel ischemic disease. 3. Cortical atrophy. POS: [facility]
[2017-06-18] MEDS: Brimonidine Tartrate 0.2% Ophth Soln 5 ml Bottle EA EYE SCH (12:34)
--- NOTE | 2017-06-18 14:24 | PDOC.PN ---
- Subjective Encounter Start Date: 06/18/17 Encounter Start Time: 10:30 Subjective: pt up in bed no complains - Objective Vital Signs & Weight: Vital Signs (12 hours) Temp Pulse Pulse Pulse Resp BP BP 06/18/17 11:20 97.4 F L 97 18 06/18/17 10:08 98.3 F 73 18 06/18/17 10:01 73 06/18/17 09:15 75 95 157/86 H 166/85 H 06/18/17 07:40 78 77 133/71 148/70 H 06/18/17 07:30 98.3 F 73 18 06/18/17 06:38 97.6 F 81 18 BP Pulse Ox 06/18/17 11:20 151/90 H 94 L 06/18/17 10:08 06/18/17 10:01 06/18/17 09:15 06/18/17 07:40 06/18/17 07:30 141/70 H 98 06/18/17 06:38 113/57 L 97 Weight Admit Weight 98 lb Weight 98 lb I&O: 06/17/17 06/18/17 06/19/17 06:59 06:59 06:59 Intake Total 10 Balance 10 Result Diagrams: 06/18/17 04:37 06/18/17 04:37 Phys Exam - Physical Examination HEENT: PERRLA, moist MMs Neck: no nodes Respiratory: no wheezing, no rales Cardiovascular: RRR, no significant murmur Gastrointestinal: soft, non-tender Musculoskeletal: no edema Neurological: non-focal, normal sensation Psychiatric: normal affect Dx/Plan (1) TIA (transient ischemic attack) Status: Acute Plan: pt had cta head and neck no acute process. pt on asa/stain, neurology consulted , lipid panel ordered. MRI brain no acute process. echo pending. PT ordered. (2) CAD (coronary artery disease) Code(s): I25.10 - ATHSCL HEART DISEASE OF [place] CORONARY ARTERY W/O ANG PCTRS Status: Chronic Qualifiers: Coronary Disease-Associated Artery/Lesion type: [place] artery [place] vs. transplanted heart: [place] heart Associated angina: without angina Qualified Code(s): I25.10 - Atherosclerotic heart disease of [place] coronary artery without angina pectoris Plan: stable continue to monitor (3) CKD (chronic kidney disease) stage 2, GFR 60-89 ml/min Code(s): N18.2 - CHRONIC KIDNEY DISEASE, STAGE 2 (MILD) Status: Chronic Plan: stable continue to monitor (4) Hyperkalemia Code(s): E87.5 - HYPERKALEMIA Status: Resolved Plan: stable continue to monitor - Plan * .
--- NOTE | 2017-06-18 20:34 | CON ---
DATE OF CONSULTATION: 06/18/2017 REFERRING PROVIDER: Jade Waller MD REASON FOR CONSULTATION: Altered mental status, syncopal event. HISTORY OF PRESENT ILLNESS: Ms. Huber is a pleasant 87-year-old - Qat[place] female, who has been consulted for evaluation of facial numbness and altered mental status. History is obtained from patient's daughter who was present at bedside. Daughter reports that on yesterday, the patient had an episode where she was noted to have left facial swelling and droopiness on the left side of the face. She then had passed out. She was unresponsive for few minutes, which prompted her to call EMS and patient was brought to the [facility]. Daughter reports that she has been having episodes of passing out over the past several months. These episodes have been increasing in frequency over the past few months. She notes that on some of these episodes , she has a sudden loss of consciousness and has bowel incontinence. She is unresponsive for 3-5 minutes without any postictal confusion. During these spells, she does not have any convulsions, no tongue biting or frothing at the mouth. She did have episodes where she loses bowel control with these episodes. She has never been diagnosed with seizures. She has history of dementia and that has resulted in some agitation and confusion, but they are under control with her medication. PAST MEDICAL HISTORY: Significant for recurrent syncopal episodes, TIA, hypertension, dyslipidemia, legally blind in her left eye, and degenerative joint disease. PAST SURGICAL HISTORY: Significant for carotid endarterectomy in 2005, laparoscopic cholecystectomy in 2006, implanted loop recorder in 2016. CURRENT MEDICATIONS: Please review MAR. ALLERGIES: No known drug allergies. REVIEW OF SYSTEMS: As mentioned in the HPI, otherwise negative. FAMILY HISTORY: Noncontributory. SOCIAL HISTORY: She does not smoke cigarettes, drinks alcohol, or use illicit drugs. PHYSICAL EXAMINATION: VITAL SIGNS: Blood pressure of 99/54, pulse of 69, temperature of 97.3, respirations of 16, O2 sats of 100% on room air. GENERAL: A well-developed, well-nourished -Qatari female, in no apparent distress. RESPIRATORY: Clear to auscultation bilaterally. CARDIOVASCULAR: Regular rate and rhythm. NEUROLOGIC: Mental status: The patient is awake, alert, oriented x2. Speech and language: Fluent speech. Cranial nerves: Pupils are 3 mm and reactive. Visual manning are intact. Extraocular muscles are intact. No nystagmus noted. Face is symmetric. Tongue and uvula are midline. Motor exam showed normal tone and bulk with 5/5 strength in both upper and lower extremities. Deep tendon reflex is 1+ reflex in both upper and lower extremities. Babinski: Plantar responses flexion bilaterally. Coordination intact to finger-nose- finger tapping bilaterally. Romberg is positive. Gait is not tested. LABORATORY DATA: Reviewed that included CBC, coag panel, CMP, lipid profile, CK -MB, troponin, CPK, which is significant for hemoglobin 10.9, hematocrit 33.7, BUN of 27, creatinine of 1.25, otherwise unremarkable. IMAGING STUDIES: MRI brain without contrast was reviewed, which showed no acute intracranial abnormality. CT angiogram of the head and neck were reviewed , which showed no hemodynamically significant stenosis. Echocardiogram results were reviewed, which showed 55-60% ejection fraction with diastolic dysfunction , mild mitral and tricuspid regurgitation. IMPRESSION: 1. Altered mental status, now resolving. 2. Recurrent syncopal spell. 3. Dementia. PLAN: Ms. Huber is a pleasant 87-year-old -Q[place] female who presented with the episode of syncope and facial numbness. I have discussed with the daughter regarding seizures as she does have loss of bowel control with this episode, this could be seizure induced. I will recommend obtaining EEG for further evaluation. I have discussed with her daughter to start her on antiepileptic medications, however, daughter refused. Once EEG is done, the patient is okay to be discharged to home from neurological standpoint. Thank you for your consultation. MIREYA
[2017-06-18] MEDS: clonazePAM 0.5 MG TAB PO SCH (21:02)
[2017-06-18] MEDS: Atorvastatin Calcium 10 MG TAB PO SCH (21:02)
[2017-06-19] MEDS ORDERED: traZODone HCl 50 MG TAB PO SCH (00:15)
[2017-06-19] MEDS: Enoxaparin Sodium 30 MG/0.3 ML SYRINGE SC SCH (10:36)
[2017-06-19] MEDS: NIFEdipine XL 60 MG TAB PO SCH (10:36)
[2017-06-19] MEDS: Brimonidine Tartrate 0.2% Ophth Soln 5 ml Bottle EA EYE SCH (10:36)
[2017-06-19] MEDS: Aspirin 81 mg Enteric Coated Tablet PO SCH (10:36)
--- NOTE | 2017-06-19 16:02 | PDOC.PN ---
- Subjective Encounter Start Date: 06/19/17 Encounter Start Time: 09:00 Subjective: pt up in bed no complains - Objective Vital Signs & Weight: Vital Signs (12 hours) Temp Pulse Pulse Pulse Resp BP BP 06/19/17 11:03 80 70 129/63 135/71 06/19/17 10:36 78 06/19/17 10:33 98.4 F 78 16 06/19/17 08:10 98.4 F 78 16 BP Pulse Ox 06/19/17 11:03 06/19/17 10:36 06/19/17 10:33 126/62 100 06/19/17 08:10 Weight Admit Weight 98 lb Weight 98 lb I&O: 06/18/17 06/19/17 06/20/17 06:59 06:59 06:59 Intake Total 10 Balance 10 Result Diagrams: 06/18/17 04:37 06/18/17 04:37 Phys Exam - Physical Examination HEENT: PERRLA Neck: no nodes, no JVD Respiratory: no wheezing Cardiovascular: RRR, no significant murmur Gastrointestinal: soft, non-tender Musculoskeletal: pulses present Neurological: non-focal Dx/Plan (1) TIA (transient ischemic attack) Status: Acute Plan: echo ef of 50%, mri negative for acute stroke. pt on asa and statin. eeg ordered. results pending. family to decide rehab vs home. recommended home since pt does get more confused and high risk of delirium. (2) CAD (coronary artery disease) Code(s): I25.10 - ATHSCL HEART DISEASE OF [place] CORONARY ARTERY W/O ANG PCTRS Status: Chronic Qualifiers: Coronary Disease-Associated Artery/Lesion type: [place] artery [place] vs. transplanted heart: [place] heart Associated angina: without angina Qualified Code(s): I25.10 - Atherosclerotic heart disease of [place] coronary artery without angina pectoris Plan: stable (3) CKD (chronic kidney disease) stage 2, GFR 60-89 ml/min Code(s): N18.2 - CHRONIC KIDNEY DISEASE, STAGE 2 (MILD) Status: Chronic Plan: stable (4) Hyperkalemia Code(s): E87.5 - HYPERKALEMIA Status: Resolved - Plan * .
[2017-06-19 16:12] VITALS: BP 138/67; TEMP 97.6
--- NOTE | 2017-06-21 15:38 | DIS ---
DATE OF ADMISSION: 06/17/2017 DATE OF DISCHARGE: 06/19/2017 DISCHARGE DIAGNOSES: Included, 1. Possible transient ischemic attack. 2. Coronary artery disease. 3. Chronic kidney disease 4. Hypokalemia. DISCHARGE MEDICATIONS: Are as following: Clonazepam 0.25 mg p.o. at bedtime, Zocor 20 mg q.p.m., Pr ocardia 60 mg p.o. daily and aspirin 81 mg p.o. daily. The patient's primary care doctor is Jennifer Sarah. HOSPITAL COURSE: The patient is a pleasant 87-year-old female who initially came into the hospital w ith complaints of left-sided weakness. Patient initially underwent a CT head which did not indicate any acute intracranial abnormalities, only indicated small vessel ischemic disease. The patient also underwent a CT angiogram which indicated no acute evidence of acute ischemia and no evidence of sign ificant extracranial internal carotid artery stenosis either. The patient had CTA brain perfusion, w hich also indicated no evidence of acute ischemia. The patient then underwent an echocardiogram whic h indicated an EF of 55%-60% and mild mitral regurgitation. The patient had a brain MRI which indica bertha no acute intracranial process. The patient was seen by Neurology who recommended to obtain an EE G for possible seizure. Patient had an EEG, which the results were informed to me by the nurse that it was negative. Patient then was discharged home with home physical therapy. This was discussed in details with the patient's daughter given patient's mild delirium while she was in the hospital due to given her history of dementia. Patient's daughter agreed to take patient home with outpatient [facility]ical therapy.
--- NOTE | 2017-06-23 18:04 | EKG ---
Test Reason : Blood Pressure : / mmHG Vent. Rate : 079 BPM Atrial Rate : 079 BPM P-R Int : 142 ms QRS Dur : 070 ms QT Int : 376 ms P-R-T Axes : 052 014 061 degrees QTc Int : 431 ms Normal sinus rhythm Normal ECG Confirmed by KOJO PHILLIPS MD ([id number]), subeditor RODRÍGUEZ AZUL ([id number]) on 06/23/2017 6:03:34 PM Referred By: Confirmed By:KOJO PHILLIPS MD
== END 2017-06-19 07:25 | disposition home or self-care (01) ==
LOC: ERS 12:04 → 2SE 17:22
PROVIDERS: ADMIT Internal Medicine; ATTEND Internal Medicine
DX: G45.9 Transient cerebral ischemic attack, unspecified (principal); I25.10 Atherosclerotic heart disease of native coronary artery without angina pectoris; E78.5 Hyperlipidemia, unspecified; M19.90 Unspecified osteoarthritis, unspecified site; G30.9 Alzheimer's disease, unspecified; F02.80 Dementia in other diseases classified elsewhere, unspecified severity, without behavioral disturbance, psychotic disturbance, mood disturbance, and anxiety; I25.2 Old myocardial infarction; M06.9 Rheumatoid arthritis, unspecified; I12.9 Hypertensive chronic kidney disease with stage 1 through stage 4 chronic kidney disease, or unspecified chronic kidney disease; N18.2 Chronic kidney disease, stage 2 (mild); E87.5 Hyperkalemia; R41.82 Altered mental status, unspecified; R55 Syncope and collapse; Z86.73 Personal history of transient ischemic attack (TIA), and cerebral infarction without residual deficits; Z79.899 Other long term (current) drug therapy; Z90.49 Acquired absence of other specified parts of digestive tract; Z98.890 Other specified postprocedural states
CPT/HCPCS: 0042T; 70450; 70496; 70498; 70551; 71045; 80048; 80053; 80061; 82330; 82435; 82550; 82553; 82565; 82803; 82947; 83605; 83690; 84132; 84295; 84484; 85007; 85014; 85025; 85027; 85610; 85730; 93005; 93306; 94760; 95816; 95819; 96372 ×2; 96374; 97110; 97116 ×2; 97139 ×3; 97530; 99291; G0378; G8978; G8979; G8987; G8988; 36415; G8996-GN-CI; G8997-GN-CH; J0360; J1650

== ENCOUNTER 2017-07-14 12:00 | Emergency (ER) | payer MEDICARE ==
[2017-07-14 13:11] LABS: Bilirubin Negative (Negative); Blood, Urine Negative (Negative); Clarity CLEAR (Clear); Glucose, Urine (Dipstick) Negative (Negative); Leukocyte Negative (Negative); Nitrite Negative (Negative); Protein, Urine (Dipstick) 100 mg/dL (Neg-Trace); Specific Gravity, Urine 1.012 (1.002-1.036)
[2017-07-14 13:14] LABS: Bacteria/HPF None Seen HPF (None Seen); Hyaline Casts/LPF 0-3 HYALINE CAST LPF (0-3 Hyaline); RBC/HPF None Seen HPF (0-3); Squamous Epithelial None Seen HPF (0-3); WBC/HPF 0-3 HPF (0-3)
[2017-07-14 13:36] LABS: CKMB 0.8 ng/mL (0-6.6)
[2017-07-14] MEDS ORDERED: ISOVUE-370 76%-LOCM 1 ML ONE (13:53)
[2017-07-14 14:02] LABS: Troponin I 0.017 ng/mL (< 0.028)
[2017-07-14 14:44] LABS: Hemoglobin 12.5 g/dL (12.0-16.0); Mean Corpuscular HGB CONC 33.2 g/dL (32.0-36.0); Mean Corpuscular Hemoglobin 30.6 pg (27.0-31.0); Mean Corpuscular Volume 92.2 fl (81.0-99.0); RBC Distribution Width 12.4 % (11.5-14.5); Red Blood Cell (RBC) Count 4.08 mill/uL (4.20-5.40); White Blood Cell (WBC) Count 9.3 thou/uL (4.8-10.8)
[2017-07-14 14:51] LABS: ALT (SGPT) Less than 7 U/L (8-55); AST (SGOT) 16 U/L (5-34); Albumin 3.6 g/dL (3.4-4.8); Alkaline Phosphatase 110 U/L (40-150); Anion Gap 15 mmol/L (10-20); BUN (Urea Nitrogen) 24 mg/dL (9.8-20.1); Bilirubin, Total 0.3 mg/dL (0.2-1.2); Calc. Creatinine Clearance 0 mL/min (70-130); Calcium 9.2 mg/dL (7.8-10.44); Carbon Dioxide 19 mmol/L (23-31); Chloride 112 mmol/L (98-107); Estimated GFR-MDRD 54; Globulin 3.3 g/dL (2.4-3.5); Glucose 87 mg/dL (83-110); Lipase 17 U/L (8-78); Potassium 4.5 mmol/L (3.5-5.1); Protein, Total 6.9 g/dL (6.0-8.3); Sodium 141 mmol/L (136-145)
[2017-07-14 15:06] LABS: #Lymphocytes 0.9 thou/uL (1.20-3.40); #Monocytes 0.3 thou/uL (0.11-0.59); #Neutrophils 8.1 thou/uL (1.40-6.50); %Basophils 0.2 % (0.0-1.0); %Eosinophils 0.4 % (0.0-10.0); %Lymphocytes 9.3 % (21.0-51.0); %Monocytes 3.3 % (0.0-10.0); %Neutrophils 86.9 % (42.0-75.0); PLT Morphology Comment Appears Adequate; Platelet Count 215 thou/uL (130-400); RBC Morphology Normal
--- NOTE | 2017-07-14 15:56 | RAD ---
ABDOMEN TWO VIEWS CHEST ONE VIEW 07/14/17 HISTORY: 87-year-old female with history of abdominal pain, episodes of altered mental status, history of alicia ntia. COMPARISON: 10/16/11. FINDINGS: No significant acute intrathoracic disease. Atherosclerosis of the aorta. Loop recorder on the left s gill. Patchy bone demineralization. There is no free intraperitoneal air within the abdomen. No evidence of large or small bowel obstruct ion. Lumbar spine spondylosis. Prominent vascular calcifications. IMPRESSION: No large or small bowel obstruction or other significant acute process in the abdomen. No acute proce ss in the chest. Thoracic and lumbar spondylosis. Patchy bone demineralization and degenerative houser es. No free intraperitoneal air. POS: [facility]
--- NOTE | 2017-07-14 18:12 | CT ---
ABDOMEN AND PELVIC CT SCAN WITH IV CONTRAST: 07/14/17 HISTORY: 87-year-old female with history of abdominal pain and dementia. Mental status changes. Minimal pleural thickening and pleural based parenchymal changes bilaterally having more of a chronic appearance. Diffuse bone demineralization. Status post cholecystectomy without significant intrahepa tic ductal dilatation. The pancreas and spleen and adrenal glands appear unremarkable. No evidence fo r acute obstruction. Bilateral renal cysts. Colonic diverticulosis without acute diverticulitis. N ormal appearing appendix. No abscess, adenopathy or abnormal fluid collection. Uterus and adnexal reg ions are unremarkable. IMPRESSION: Colonic diverticulosis without diverticulitis. Bilateral renal cysts. No evidence for acute obstru ction. No other significant acute process. POS: [facility]
== END 2017-07-14 16:14 | disposition home or self-care (01) ==
LOC: ERS 12:00
DX: R10.9 Unspecified abdominal pain (principal); E78.5 Hyperlipidemia, unspecified; M06.9 Rheumatoid arthritis, unspecified; I25.2 Old myocardial infarction; I10 Essential (primary) hypertension; Z79.899 Other long term (current) drug therapy
CPT/HCPCS: 36415; 51701; 74022; 74177; 80053; 81003; 81015; 82553; 83605; 83690; 84484; 85025; 93005; 96360; 96361; A4353

== ENCOUNTER 2017-11-15 13:19 | Inpatient (IN) | payer MEDICARE ==
[2017-11-15 14:30] LABS: #Eosinphils 0.1 thou/uL (0.0-0.7); #Lymphocytes 1.6 thou/uL (1.20-3.40); #Monocytes 0.3 thou/uL (0.11-0.59); #Neutrophils 6.9 thou/uL (1.40-6.50); %Basophils 0.5 % (0.0-1.0); %Eosinophils 1.5 % (0.0-10.0); %Monocytes 3.3 % (0.0-10.0); %Neutrophils 76.7 % (42.0-75.0); Mean Corpuscular HGB CONC 33.5 g/dL (32.0-36.0); Mean Corpuscular Hemoglobin 30.5 pg (27.0-31.0); Mean Corpuscular Volume 91.2 fL (78.0-98.0); Mean Platelet Volume 6.7 fL (7.4-10.4); Platelet Count 336 thou/uL (130-400); RBC Distribution Width 12.8 % (11.5-14.5); Red Blood Cell (RBC) Count 4.26 mill/uL (4.20-5.40)
--- NOTE | 2017-11-15 14:49 | RAD ---
CHEST 1 VIEW: HISTORY: Cough. COMPARISON: Radiograph of 06/17/17. FINDINGS: Monitoring device projects over the left hemithorax. Numerous calcified granulomas project over the chest. No acute osseous abnormalities. Moderate degenerative change of the thoracic spine. Evidence of rotator cuff arthropathy bilaterally. IMPRESSION: No acute intrathoracic abnormality. POS: [facility]
--- NOTE | 2017-11-15 14:57 | CT ---
CT HEAD NONCONTRAST: INDICATION: Altered mental status, syncope. FINDINGS: There is moderate chronic microvascular ischemic disease. Ex vacuo dilatation of the ventricular sys tem is present. There is no midline shift. No acute intracranial hemorrhage or mass effect. IMPRESSION: Moderate chronic microvascular ischemic disease, without evidence of acute intracranial hemorrhage or mass effect. POS: [facility]
[2017-11-15 15:00] LABS: ALT (SGPT) 10 U/L (8-55); AST (SGOT) 27 U/L (5-34); Albumin 3.2 g/dL (3.4-4.8); Alkaline Phosphatase 106 U/L (40-150); Anion Gap 17 mmol/L (10-20); BUN (Urea Nitrogen) 26 mg/dL (9.8-20.1); Bilirubin, Total 0.2 mg/dL (0.2-1.2); CK (CPK) 60 U/L (29-168); Calc. Creatinine Clearance 0 mL/min (70-130); Calcium 9.3 mg/dL (7.8-10.44); Carbon Dioxide 19 mmol/L (23-31); Chloride 109 mmol/L (98-107); Estimated GFR-MDRD 34; Globulin 3.7 g/dL (2.4-3.5); Glucose 94 mg/dL (83-110); Potassium 4.6 mmol/L (3.5-5.1); Protein, Total 6.9 g/dL (6.0-8.3); Sodium 140 mmol/L (136-145)
[2017-11-15 15:02] LABS: CKMB 7.7 ng/mL (0-6.6)
[2017-11-15 15:23] LABS: Bilirubin Small (Negative); Blood, Urine Negative (Negative); Clarity CLOUDY (Clear); Glucose, Urine (Dipstick) Negative (Negative); Leukocyte Moderate (Negative); Nitrite Negative (Negative); Protein, Urine (Dipstick) 100 mg/dL (Neg-Trace); Specific Gravity, Urine 1.012 (1.002-1.036); Urobilinogen 0.2 mg/dL (0.2-1.0); pH, Urine 7.5 (5.0-9.0)
[2017-11-15 15:24] LABS: Bacteria/HPF 3+ HPF (None Seen); Hyaline Casts/LPF 7-10 HYALINE CAST LPF (0-3 Hyaline); RBC/HPF 0-3 HPF (0-3); Squamous Epithelial None Seen HPF (0-3)
[2017-11-15] MEDS ORDERED: cefTRIAXone\\ROCEPHIN 1 GM VIAL ONE (16:42)
[2017-11-15 17:01] LABS: Magnesium 2.1 mg/dL (1.6-2.6); Phosphorus 3.3 mg/dL (2.3-4.7)
[2017-11-15] MEDS ORDERED: Aspirin 300 MG Suppository ONE (17:38)
[2017-11-15] MEDS ORDERED: Labetalol HCl 100 MG/20 ML VIAL ONE (17:38)
[2017-11-15 20:37] LABS: Troponin I 0.176 ng/mL (< 0.028)
[2017-11-15] MEDS ORDERED: Acetaminophen 325 MG TAB PO PRN (21:22)
[2017-11-15] MEDS ORDERED: Ondansetron HCl/PF 4 MG/2 ML Vial IVP PRN (21:22)
[2017-11-16] MEDS: cloNIDine 0.1 MG TAB PO PRN (05:45)
[2017-11-16 06:06] LABS: Anion Gap 13 mmol/L (10-20); BUN (Urea Nitrogen) 21 mg/dL (9.8-20.1); Calc. Creatinine Clearance 19 mL/min (70-130); Calcium 8.8 mg/dL (7.8-10.44); Carbon Dioxide 19 mmol/L (23-31); Cardiac Risk 2.6 (Less than 4.5); Chloride 109 mmol/L (98-107); Cholesterol 121 mg/dl (< 200 Desired); Estimated GFR-MDRD 48; Glucose 80 mg/dL (83-110); HDL Cholesterol 46 mg/dL (>60 Neg Risk); LDL Cholesterol, Calculated 53 mg/dL; Potassium 4.1 mmol/L (3.5-5.1); Sodium 137 mmol/L (136-145); Triglycerides 111 mg/dL (Less than 150)
[2017-11-16 06:08] LABS: Troponin I 0.138 ng/mL (< 0.028)
[2017-11-16 06:37] LABS: #Eosinphils 0.2 thou/uL (0.0-0.7); #Monocytes 0.3 thou/uL (0.11-0.59); #Neutrophils 5.5 thou/uL (1.40-6.50); %Basophils 0.4 % (0.0-1.0); %Eosinophils 2.4 % (0.0-10.0); %Lymphocytes 24.6 % (21.0-51.0); %Monocytes 3.8 % (0.0-10.0); %Neutrophils 68.8 % (42.0-75.0); Hemoglobin 12.6 g/dL (12.0-16.0); Mean Corpuscular Volume 90.3 fL (78.0-98.0); Mean Platelet Volume 7.1 fL (7.4-10.4); Platelet Count 312 thou/uL (130-400); RBC Distribution Width 12.6 % (11.5-14.5); RBC Morphology Normal; Red Blood Cell (RBC) Count 4.49 mill/uL (4.20-5.40)
--- NOTE | 2017-11-16 08:22 | HP ---
CODE STATUS: FULL CODE. TIME OF EVALUATION: 8:30 p.m. CHIEF COMPLAINT: Patient got suddenly confused. HISTORY OF PRESENT ILLNESS: This is an 87-year-old female patient with past medical history of posit dania for Alzheimer disease, hyperlipidemia, high cholesterol, previous history of TIAs, RA, MIs, hyper tension. Patient came to the hospital after having an episode of syncope, family reported that she h ad some shaking, relaxation of the rectal and urinary sphincters, patient had two episodes. Family h as reported that this has happened in the past, symptoms were sudden, [id number], patient tot ally blackout. As of note, patient is bedbound. No clear triggers. No alleviating factors. Sympto ms got better by itself. REVIEW OF SYSTEMS: Unable to obtain. Patient has advanced dementia. PAST MEDICAL HISTORY: Patient has a history of Alzheimer's, hyperlipidemia, TIA, history of coronary artery disease, hypertension, vertigo. PAST SURGICAL HISTORY: Bilateral eye surgery, legally blind in left eye, right neck surgery. PSYCHIATRIC HISTORY: No psych history. SOCIAL HISTORY: No alcohol, no drugs. No smoking history. FAMILY HISTORY: Reviewed and noncontributory to current presentation. DRUG ALLERGIES: No known drug allergies. REPORTED MEDICATIONS: Clonidine, clonazepam, quetiapine, amitriptyline. PHYSICAL EXAMINATION: VITAL SIGNS: On presentation was 160/100 with heart rate 112, respiratory rate was 15, temperature 9 7.4. GENERAL: Patient was met at bedside. Patient is bedbound, legally blind. HEENT: Eyes, normal conjunctivae, moist oral mucosa. NECK: No JVD. RESPIRATORY: Bilateral air entry. No rales, no wheezing. Symmetric expansion. CARDIOVASCULAR: Patient was initially tachycardic noted on presentation with heart rate normal, norm al rhythm. No murmurs, no gallop, no edema. ABDOMEN: Soft. Normal bowel sounds. MUSCULOSKELETAL: Baseline range of motion, patient is bedbound, with marked atrophy L4 bilaterally. SKIN: Warm and intact. No pallor, no rash, no redness. NEUROLOGIC: Patient is back to baseline sensory. No evidence of any new focal weakness. Baseline s peech. Cranial nerve seems to be intact. PSYCHIATRIC: Patient is in good mood. No anxiety, oriented, optimal judgment. LABORATORY DATA: Reviewed. White count 9.0, hemoglobin 13, MCV 91, platelet count 336. Chemistry: Sodium 140, potassium 4.6, chloride 109, carbon dioxide 19, anion gap 17, BUN 26, creatinine 1.69. Previous creatinine value was 1.14. LFTs were normal. CK 7.7 with troponin mildly elevated at 0.160 and 0.176. UA was done. Patient has white count greater than 50, too numerous to count. Chest x-r ay no acute intrathoracic abnormalities. Brain CT, moderate chronic microvascular ischemic disease w ithout evidence of acute intracranial hemorrhage or mass effect. EKG was reviewed. The patient has sinus tachycardia at the rate of 114 with some T waves and T-wave abnormality, consider inferior isch emia and anterolateral ischemia. ASSESSMENT AND PLAN: 1. Syncope, unclear etiology, by the history ____ episode relaxation of rectal and urinary sphincter s, could be secondary to seizure, secondary to dementia, and advanced age. We will monitor, we will treat accordingly. Patient has a history of previous transient ischemic attack, so we are doing stro ke workup, patient has a loop recorder that is why we are not doing MRI. 2. Advanced dementia, we will need supportive care as inpatient. Patient's family and the patient i n hospice; however, they have stated patient is FULL CODE, it looks like they do not fully understand her mom's condition. This might need to be addressed later on during the admission once patient was stable. 3. Urinary tract infection, patient has been placed on antibiotics, cultures to be followed. ____ tr eatments were adjusted as per sensitivity. 4. Borderline troponin 0.16 x2, this could be related to acute kidney injury. Second troponin is ab out the same. EKG does have some mild changes. Patient is in hospice, not a good candidate for any invasive procedures. Likely is a non ST-elevation myocardial infarction type 2. Patient has acute k idney injury also. We will reconcile home medications. Adjust treatment as needed. 5. Acute kidney injury with creatinine of 1.6. There is an increase from previous value that was 1. 14. We will give fluids, we will monitor, seems to be prerenal likely due to dehydration from failur e to thrive. 6. Dehydration. Patient has elevated BUN and creatinine. We will hydrate, we will monitor kidney f unction. 7. Deep venous thrombosis prophylaxis. 8. Legally blind, needs assistance as inpatient.
[2017-11-16] MEDS ORDERED: Aspirin 325 mg Enteric Coated Tablet PO SCH (09:00)
[2017-11-16] MEDS ORDERED: Aspirin 325 MG TAB PO SCH (09:15)
[2017-11-16] MEDS: Enoxaparin Sodium 30 MG/0.3 ML SYRINGE SC SCH (09:18)
--- NOTE | 2017-11-16 09:22 | ULT ---
CAROTID DUPLEX ULTRASOUND: INDICATION: History of TIA. COMPARISON: CTA examination of the neck dated 06/17/17. FINDINGS: The patient was noncompliant during the examination and constantly moving, limiting evaluation of the left ICA and left ECA. No visible stenosis or terminal flow is evident within the ICAs. Peak systolic velocity measured within the right CCA was 18 cm/s. In the right ICA, peak systolic ve locity was 42.3 cm. The right ICA/CCA ratio is 2.4. Peak systolic velocity within the left CCA was 34.1 cm/s and peak systolic velocity in the ICA was 31 .8 cm/s. The left ICA/CCA ratio is 0.93. Antegrade blood flow is seen in both vertebral arteries. Incidental note is made of a near completely occlusive thrombus within the right internal jugular vei n. IMPRESSION: 1. Limited exam due to patient cooperation. No definite hemodynamically significant stenosis demons trated. 2. Near complete occlusive thrombus in the right internal jugular vein. 3. Findings were called to Shante Hess R.N., caring for this patient, at 8:19 a.m. on 11/18/17. CODE CR POS: [facility]
--- NOTE | 2017-11-16 11:53 | PQF ---
CLINICAL DOCUMENTATION IMPROVEMENT CLARIFICATION FORM: ICD-10 Updated PLEASE DO AN ADDENDUM TO THE PROGRESS NOTE WITH ANY DOCUMENTATION UPDATES OR ADDITIONS AND CARRY THROUGH TO DC SUMMARY. THANK YOU. DATE: 11/16, 11/19 ATTN: DR. BARAK KAUFMAN/ DR. Patricia SRIVASTAVA Please exercise your independent, professional judgment in responding to the clarification form. Clinical indicators are provided on the bottom of this form for your review. Please check appropriate box(s): [ ] Primary/Essential Hypertension [ ] Emergency [ ] Urgency [ ] Crisis [ ] Hypertensive Heart Disease [ ] Hypertensive Heart and Kidney Disease [ ] Other diagnosis [ ] Unable to determine For continuity of documentation, please document condition throughout progress notes and discharge summary. Thank You. CLINICAL INDICATORS - SIGNS / SYMPTOMS / LABS ER PRESENTATION 11/15: BP - 135/93 - 175/124 TREATED W/IV LABETALOL X1 BP: 185/97, 181/99, 151/83, 147/74 (SINCE ADMISSION) RISK FACTORS: DEMETRIA LIKELY NSTEMI TYPE 2 HX HTN HX CAD TREATMENTS: PRN PO CLONIDINE (GIVEN 11/16) TELEMETRY MONITORING THANK YOU! Olga (This form is maintained as a part of the permanent medical record) 2014 [employer]. All Rights Reserved Olga Stratton RN, BSN [email or web address] Office: [phone] [facility] HOSPITALLuis Miguel
--- NOTE | 2017-11-16 12:10 | PQF ---
CLINICAL DOCUMENTATION IMPROVEMENT CLARIFICATION FORM: ICD-10 Updated PLEASE DO AN ADDENDUM TO THE PROGRESS NOTE WITH ANY DOCUMENTATION UPDATES OR ADDITIONS AND CARRY THROUGH TO DC SUMMARY. THANK YOU. Date: 11/16, 11/19 ATTN: DR. BARAK KAUFMAN/ DR. Patricia SRIVASTAVA Please exercise your independent, professional judgment in responding to the clarification form. Clinical indicators are provided on the bottom of this form for your review. 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 ASSESSMENT 11/16: APPROXIMATE 1% WT LOSS; INABILITY TO CONSUME SUFFICIENT ENERGY RISK 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 STAGE II PRESSURE ULCER TO SACROCOCCYGEAL TREATMENT: SPEECH CONSULT ASSISTANCE W/FEEDING TURN Q2 HRS Moderate Malnutrition (in acute illness) Energy Intake: <75% of estimated energy requirement for > 7 days Weight Loss: 1-2%/1 week; 5%/ 1 month; 7.5%/3 months Other: mild body fat loss; mild muscle mass loss; mild fluid accumulation; Severe Malnutrition (in acute illness) Energy Intake: < 50% of estimated energy requirement for > 5 days Weight Loss: >1-2%/1 week; >5%/1 month; >7.5%/3 months Other: moderate body fat loss; moderate muscle mass loss; moderate- severe fluid accumulation; 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 Olga (This form is maintained as a part of the permanent medical record) 2014 [employer]. All Rights Reserved Olga Stratton RN, BSN [email or web address] Office: [phone] [facility] DIVISIONLuis Miguel
--- NOTE | 2017-11-16 12:16 | PQF ---
CLINICAL DOCUMENTATION IMPROVEMENT CLARIFICATION FORM: ICD-10 Updated PLEASE DO AN ADDENDUM TO THE PROGRESS NOTE WITH ANY DOCUMENTATION UPDATES OR ADDITIONS AND CARRY THROUGH TO DC SUMMARY. THANK YOU. DATE: 11/16, 11/19 ATTN: DR. BARAK KAUFMAN/ DR. Patricia SRIVASTAVA Please exercise your independent, professional judgment in responding to the clarification form. Clinical indicators are provided on the bottom of this form for your review. Please check appropriate box(s): I (concur) with the Nursing Admission Skin Assessment findings as stated below. [ ] Pressure Ulcer: (Stage I: Erythema; Stage II: Partial thickness; Stage III : Full thickness; Stage IV: Necrosis to muscle/bone) [ ] Location: POA: [ ] Yes [ ] No [ ] Unable to determine Stage (I to IV): (Left Right Bilateral N/A ) [ ] Location: POA: [ ] Yes [ ] No [ ] Unable to determine Stage (I to IV): (Left Right Bilateral N/A ) [ ] No pressure ulcer diagnosis [ ] Other diagnosis [ ] Unable to determine In addition, please specify: Present on Admission (POA): [ ] Yes [ ] No [ ] Unable to determine For continuity of documentation, please document condition throughout progress notes and discharge summary. Thank You. CLINICAL INDICATORS - SIGNS / SYMPTOMS / LABS NURSING ADMISSION SKIN ASSESSMENT 11/15: STAGE II PRESSURE ULCER TO SACROCOCCYXGEAL RISK FACTORS: BEDBOUND STATUS ALZHEIMER DEMENTIA FAILURE TO THRIVE TREATMENTS: TURN Q 2HRS WAFFLE MATTRESS MEPILEX APPLIED TO SACROCOCCYGEAL THANK YOU! Olga (This form is maintained as a part of the permanent medical record) 2014 [employer]. All Rights Reserved Olga Stratton RN, BSN [email or web address] Office: [phone] [facility]OSPITALLuis Miguel
--- NOTE | 2017-11-16 13:06 | CON ---
DATE OF CONSULTATION: 11/16/2017 CHIEF COMPLAINT: Acute altered mental status and episodes of blackouts. HISTORY OF PRESENT ILLNESS: The patient's daughter was next to her and provided most of her medical history. The patient is 87 years old and for this past year or so she has been mostly bedbound and family is providing full care for this patient. She also has been having episodes of hypotension where she passes out and comes around within a few minutes after they change her position. If she is sitting they make her lie down and cross her legs, so the pressure comes up. They have been dealing this for a while now and these total blackouts happened for about 2-3 minutes. She has been demented for a while and this past episode where she was blacking out when the daughter put her on her back, there was reportedly some shaking of her legs and the patient had 2 of these episodes and she has limited mobility due to advancing age and dementia. PAST MEDICAL HISTORY: History of Alzheimer's dementia, hyperlipidemia, TIAs, history of coronary artery disease, hypertension and vertigo. Previous medical history also includes rheumatoid arthritis and cardiac history including myocardial infarction and vertigo. PAST SURGICAL HISTORY: She had bilateral eye surgery and is legally blind in left eye and also had prior neck surgery, unclear what that neck surgery was. She had a history of cholecystectomy, right neck surgery. ALLERGIES: No known drug allergies. FAMILY HISTORY: Negative for any seizures. CURRENT MEDICATIONS: She takes clonazepam and clonidine at home along with quetiapine 25 mg as needed, amitriptyline 50 mg daily. DATABASE: Her recent brain MRI scan in May showed no evidence of acne acute infarct with chronic small vessel disease with cortical atrophy and she also had a CT angiography at that time for her head and neck area which does not show any significant extracranial carotid artery stenosis. At that time she was being evaluated for possible TIA and family does report she has been having TIAs on and off. LABORATORY: Laboratory workup at this time shows white count 8.0, hemoglobin 12.6, hematocrit 40.6, platelet count 312. Sodium 137, potassium 4.1, chloride 109, bicarbonate 19, BUN 21, creatinine 1.27, glucose 80, triglycerides 111, cholesterol 121, LDL 53, HDL 46, heart disease risk ratio 2.6. Her carotid Doppler study from this visit showed limited exam due to patient cooperation, near complete occlusive thrombus in the right internal jugular vein which seems to be new in onset and her brain CT scan showed moderate chronic microvascular ischemic disease. I do not have available to me any previous carotid Doppler study reports and her echocardiogram from 05/2017 shows EF at 55-60% and some diastolic dysfunction. CURRENT MEDICATIONS IN HOSPITAL: Include aspirin and statin,. REVIEW OF SYSTEMS: Unobtainable due to her mental status. PHYSICAL EXAMINATION: VITAL SIGNS: Blood pressure 145/74, pulse is 85, temperature 97.5, respiratory rate 18. CHEST: Clear vesicular breathing. CARDIOVASCULAR: S1, S2 heard, no murmurs. ABDOMEN: Soft, nontender, no organomegaly noted. NEUROLOGICAL: Her intellectual function; she states she is at home, she would never go to the hospital. She seems pleasantly confused, but cooperative and can follow 1-step commands. CRANIAL NERVES: She cannot follow any commands as far as extraocular movements , but does seem to have no facial asymmetry and tongue is in midline. MOTOR EXAMINATION: Bulk is normal tone, normal strength. She does perform hand spike maker for you and it seems to be normal and moves her legs. It is difficult to perform individual muscle group assessment, but seems to have no weakness on one side or the other, but generally frail lady. Deep tendon reflexes were absent. Sensory difficult to evaluate. Cerebellar is difficult to perform. ASSESSMENT AND PLAN: The patient is an 87-year-old lady with severe alteration in her mental status due to chronic dementia. At this time, she is brought in with questionable urinary tract infection and she is receiving antibiotics for the same. Her UA shows gram negative rods and she has been having episodes of hypotension per her family members and she passes out for a few minutes at a time. Her examination shows no evidence of any specific neurological deficits other than altered mental status and baseline dementia and she is very frail and does seem to move all extremities equally. Clinical diagnosis is most consistent with altered mental status due to likely urinary infection. In the setting such as this it is not uncommon to see some tremor or movement of her legs. At this time since she is improving and she has chronic issues including blackouts, it might benefit her to be on prophylactic Keppra for now and so we can cover her for any potential seizures unless there is events recorded it would be difficult to evaluate seizures in this setting, I would go ahead and order Keppra. TREATMENT PLAN: I will go ahead and order Keppra to cover for any future episodes for seizures and I will also request an EEG to check and make sure there is no other abnormality other than slowing expected in patients who have dementia. I will follow up the patient with you. MIREYA
--- NOTE | 2017-11-16 16:05 | PDOC.PN ---
- Subjective Encounter Start Date: 11/16/17 Encounter Start Time: 16:04 Subjective: nsg notes rev, thang ovn, pt is awake and conversant, getting EEG started -: and oriented x1 - her son is sitting outside, no new questions, feels she -: is currently better than previous - Objective Resuscitation Status: Resuscitation Status FULL:Full Resuscitation Vital Signs & Weight: Vital Signs (12 hours) Temp Pulse Resp BP BP 11/16/17 11:28 97.5 F L 85 18 145/74 H 11/16/17 08:25 92 16 147/74 H 11/16/17 08:20 97.5 F L 85 18 11/16/17 05:45 181/99 H Weight Admit Weight 89 lb 9 oz Weight 86 lb 1.6 oz I&O: 11/15/17 11/16/17 11/17/17 06:59 06:59 06:59 Intake Total 100 Balance 100 Result Diagrams: 11/16/17 05:32 11/16/17 05:32 Phys Exam - Physical Examination Constitutional: NAD HEENT: sclera anicteric EOMI Respiratory: no wheezing, no rales, no rhonchi, clear to auscultation bilateral very limited anterior examination Cardiovascular: RRR, no significant murmur, no rub Gastrointestinal: soft, positive bowel sounds Musculoskeletal: no edema Neurological: moves all 4 limbs Psychiatric: normal affect Dx/Plan - Plan "blackout" episodes apprec neuro c/s EEG empiric keppra MRI pending (pt had loop recorder placed in 2015 and successfully underwent a MRI of the brain 05/2017 without issue) unclear contribution of IJ finding - pt is a poor candidate for a/c diet: as oumar activity: as oumar dvt ppx Review of Systems - Medications/Allergies Allergies/Adverse Reactions: Allergies Allergy/AdvReac Type Severity Reaction Status Date / Time No Known Allergies Allergy Verified 11/15/17 22:28 Medications: Current Medications Acetaminophen (Tylenol) 650 mg PO Q4H PRN PRN Reason: Headache/Fever or Pain Aspirin (Aspirin) 325 mg PO DAILY SHINE Atorvastatin Calcium (Lipitor) 40 mg PO HS SHINE Clonidine (Catapres) 0.1 mg PO Q8H PRN PRN Reason: HIGH BLOOD PRESSURE Last Admin: 11/16/17 05:45 Dose: 0.1 mg Enoxaparin Sodium (Lovenox) 30 mg SC 0900 [facility] Last Admin: 11/16/17 09:18 Dose: 30 mg Ceftriaxone Sodium 1 gm/ (Sodium Chloride) 100 mls @ 200 mls/hr IVPB Q24HR [facility] Levetiracetam 500 mg/ Device 100 mls @ 200 mls/hr IVPB BID [facility] Ondansetron HCl (Zofran) 4 mg IVP Q6H PRN PRN Reason: Nausea/Vomiting
[2017-11-16] MEDS: cefTRIAXone\\ROCEPHIN 1 GM in Sodium Chloride 0.9% 100 ML IVPB SCH (18:13)
[2017-11-16] MEDS ORDERED: Atorvastatin Calcium 40 MG TAB PO SCH (21:00)
[2017-11-17 07:42] LABS: #Eosinphils 0.1 thou/uL (0.0-0.7); #Lymphocytes 1.8 thou/uL (1.20-3.40); #Monocytes 0.3 thou/uL (0.11-0.59); #Neutrophils 3.9 thou/uL (1.40-6.50); %Basophils 0.6 % (0.0-1.0); %Eosinophils 2.2 % (0.0-10.0); %Lymphocytes 29.9 % (21.0-51.0); %Monocytes 4.6 % (0.0-10.0); %Neutrophils 62.7 % (42.0-75.0); Mean Corpuscular HGB CONC 33.3 g/dL (32.0-36.0); Mean Corpuscular Hemoglobin 29.9 pg (27.0-31.0); Mean Corpuscular Volume 89.8 fL (78.0-98.0); Mean Platelet Volume 6.6 fL (7.4-10.4); Platelet Count 324 thou/uL (130-400); RBC Distribution Width 12.6 % (11.5-14.5); Red Blood Cell (RBC) Count 3.99 mill/uL (4.20-5.40); White Blood Cell (WBC) Count 6.1 thou/uL (4.8-10.8)
[2017-11-17 08:01] LABS: Anion Gap 11 mmol/L (10-20); BUN (Urea Nitrogen) 17 mg/dL (9.8-20.1); Calc. Creatinine Clearance 24 mL/min (70-130); Calcium 8.6 mg/dL (7.8-10.44); Carbon Dioxide 20 mmol/L (23-31); Chloride 110 mmol/L (98-107); Estimated GFR-MDRD 63; Glucose 88 mg/dL (83-110); Potassium 3.6 mmol/L (3.5-5.1); Sodium 137 mmol/L (136-145)
[2017-11-17] MEDS ORDERED: Aspirin 325 MG TAB PO SCH (09:00)
[2017-11-17] MEDS ORDERED: traMADol HCl 50 MG TAB PO PRN (09:18)
[2017-11-17] MEDS: cloNIDine 0.1 MG TAB PO PRN (09:19)
[2017-11-17] MEDS: Enoxaparin Sodium 30 MG/0.3 ML SYRINGE SC SCH (09:20)
[2017-11-17] MEDS ORDERED: hydrALAZINE 20 MG/ML VIAL SLOW IVP PRN (09:21)
--- NOTE | 2017-11-17 09:43 | PDOC.PN ---
- Subjective Encounter Start Date: 11/17/17 (f/u blackouts) Encounter Start Time: 09:41 Subjective: Hx of obtained from family - they report pt's knees hurt and they use -: muscle cream at home and rarely tramadol. Good appetite, no further -: shaking/blackouts noted - Objective Resuscitation Status: Resuscitation Status FULL:Full Resuscitation Vital Signs & Weight: Vital Signs (12 hours) Temp Pulse Resp BP BP Pulse Ox 11/17/17 09:19 198/101 H 11/17/17 07:28 97.5 F L 86 16 198/101 H 100 11/17/17 03:32 96.2 F L 71 14 132/80 98 11/16/17 23:48 97.1 F L 80 14 174/98 H 100 Weight Admit Weight 89 lb 9 oz Weight 88 lb 3.2 oz I&O: 11/16/17 11/17/17 11/18/17 06:59 06:59 06:59 Intake Total 100 468 Balance 100 468 Result Diagrams: 11/17/17 07:23 11/17/17 07:23 EKG Reviewed by me: Yes (tele - sinus 60-80's) Phys Exam - Physical Examination Constitutional: NAD Respiratory: no wheezing, no rales, no rhonchi, clear to auscultation bilateral Cardiovascular: RRR, no significant murmur Gastrointestinal: soft, non-tender, no distention, positive bowel sounds Musculoskeletal: no edema flexing of left arm/hand Deviation from normal: answers a few questions, alert Skin: no rash Dx/Plan (1) Jugular vein thrombosis, right Code(s): I82.890 - ACUTE EMBOLISM AND THROMBOSIS OF OTHER SPECIFIED VEINS Status: Acute (2) Arthritis Code(s): M19.90 - UNSPECIFIED OSTEOARTHRITIS, UNSPECIFIED SITE Status: Chronic (3) Syncope Code(s): R55 - SYNCOPE AND COLLAPSE Status: Acute Qualifiers: Syncope type: unspecified Qualified Code(s): R55 - Syncope and collapse (4) TIA (transient ischemic attack) Status: Chronic (5) Anemia Code(s): D64.9 - ANEMIA, UNSPECIFIED Status: Chronic Qualifiers: Anemia type: unspecified type Qualified Code(s): D64.9 - Anemia, unspecified (6) CAD (coronary artery disease) Code(s): I25.10 - ATHSCL HEART DISEASE OF [place] CORONARY ARTERY W/O ANG PCTRS Status: Chronic Qualifiers: Coronary Disease-Associated Artery/Lesion type: [place] artery [place] vs. transplanted heart: nome heart Associated angina: without angina Qualified Code(s): I25.10 - Atherosclerotic heart disease of [place] coronary artery without angina pectoris (7) H/O carotid endarterectomy Code(s): Z98.890 - OTHER SPECIFIED POSTPROCEDURAL STATES Status: Chronic (8) HLD (hyperlipidemia) Code(s): E78.5 - HYPERLIPIDEMIA, UNSPECIFIED Status: Chronic Qualifiers: Hyperlipidemia type: unspecified Qualified Code(s): E78.5 - Hyperlipidemia , unspecified - Plan * Discussed current status with family * Possible seizure - on keppra IV, Neuro eval yesterday and will follow, eeg completed yesterday awaiting result * ? TIA - MRI ordered, if pt able to tolerate Possible UTI - on Rocephin, follow culture. One blood culture positive iwth staph epi - likely contaminant * CAD - on aspirin, will continue full dose * Jugular vein thrombosis - pt high risk for bleed given age and stage in life - hold full anticoagulation, discussed with 4 daughters present * * BP's with some lability - added prn hydralazine. Continue prn clonidine per home routine as well. * * Dementia - moderate to severe - one daughter to bring in meds, will need to reconcile and insure she is on home meds * * dvt prophy - lovenox, renal dosing * gi prophy - not indicated * code status full - family working with this decision and hospice company * * pt remains at high risk in current condition. . * * Note - home med list obtained from daughter and updated in system - added back clonazepam scheduled and prn lorazepam. Changed tramadol to hydrocodone which she takes at home.
--- NOTE | 2017-11-17 12:18 | PRG ---
DATE OF SERVICE: 11/17/2017 CHIEF COMPLAINT: Altered mental status. INTERVAL HISTORY: The patient is currently on both ceftriaxone as well as levetiracetam for seizure prophylaxis and at this time, the patient is still somewhat sleepy per family. No events. No furthe r episodes were noted. Reports EEG, there is a low voltage as expected due to her preexisting cindy ia and she also has mild frontal fast activity which was intermittently noted throughout recording, l ikely due to medication effect and also due to her encephalopathy and she has no active seizures note d on the EEG, but there is also movement artifact. She is currently pending MRI scan. LABORATORY DATA: White count 6.1, hemoglobin 12, hematocrit 35.9, platelets 324. Sodium 137, potass ium 3.6, chloride 110, bicarbonate 20, BUN 17, creatinine 1. PHYSICAL EXAMINATION: VITAL SIGNS: Blood pressure 198/101, temperature 97.5, respiratory rate 16, O2 sats 100%. GENERAL APPEARANCE: She is more sleepy today and states she wants to go home. Higher intellectual f unctions, not oriented to time, place or person. She would like to go home and thinks this is my karmen e. CRANIAL NERVES: No facial asymmetry noted. She would not open her mouth today or open her eyes. MOTOR EXAM: She is not following any commands and she does move all her extremities. IMPRESSION: Patient is an 87-year-old lady who has encephalopathy due to her primary underlying alicia ntia. She also is suspected to have urinary infection and is on ceftriaxone. At this time, her EEG does not definitively show any seizure activity, but due to her dementia and also her motion artifact , I cannot rule out any underlying subclinical seizures. Therefore, it is best to leave her on Keppr a for now. We will wait for her MRI to be completed today. RECOMMENDATIONS: I will follow up on the MRI scan. For now, continue Keppra. Family has been [facility] ed.
--- NOTE | 2017-11-17 12:47 | MRI ---
BRAIN MRI NONCONTRAST: INDICATION: Altered mental status. TIA/CVA. FINDINGS: There is a moderate to severe microvascular ischemic disease of the cerebral white matter. Parenchym al volume loss with compensatory dilatation of the ventricular system is present. There is no acute territorial infarction, mass effect, or midline shift. There is absence of the hughes right intraocu lar lens. The imaged skull base flow voids are grossly patent. There is a stable lacunar infarction , remote, involving the right cerebellar hemisphere. IMPRESSION: 1. No acute territorial infarction. 2. Moderate to severe chronic microvascular ischemic disease. 3. Parenchymal volume loss with compensatory dilatation of the ventricular system. POS: IZA
[2017-11-17] MEDS ORDERED: HYDROcodone/Acetaminophen 5/325 mg Tablet PO PRN (15:23)
[2017-11-17] MEDS ORDERED: Docusate 100 MG CAP PO PRN (15:23)
[2017-11-17] MEDS ORDERED: Lorazepam 0.5 MG TAB PO PRN (15:24)
[2017-11-17] MEDS: cefTRIAXone\\ROCEPHIN 1 GM in Sodium Chloride 0.9% 100 ML IVPB SCH (17:15)
[2017-11-17] MEDS ORDERED: Dextrose 50% Abboject 50 ML SYRINGE ONE (18:58)
[2017-11-17] MEDS ORDERED: Dextrose 50% Abboject 50 ML SYRINGE SLOW IVP PRN ×2 (19:13→19:28)
[2017-11-17] MEDS ORDERED: Dextrose 5 %-0.45 % NaCl 1,000 ML IV SCH (19:15)
[2017-11-17] MEDS ORDERED: Sodium Chloride 0.9% 500 ML IV SCH (19:15)
--- NOTE | 2017-11-17 19:22 | PDOC.EVN ---
Event Note - Event Note Event Note: Called to room for Code Hi - pt was staring, unresponsive for about 7 minutes , eyes wide open. no jerking noted by family. Initial bp in jimmy 60's/30's and pt had received hydralazine 10 mg about an hour prior to bp that was greater than 180 systolic. On my arrival, bp up to the 80's systolic, ordered NS 500 ml Exam - pt talking with eyes closed, turned to the side, moving arms and legs, following commands. Lungs ctab with good air movement. heart - normal s1/s2 without audible murmurs. Abd soft. Ext - no edema. Skin - no rashes. Blood sugar checked 50's - amp of D50 ordered. There was difficulty in administering this - so it was transferred to a smaller syringe and administered through IV. Reviewed MRI report - no acute changes. Moderate to severe chronic ischemic changes. Temperature checked and 94 rectal Last bp while I was in the room 110's systolic, sat >94% on room air Impression: Hypotension secondary to hydralazine with labile blood pressures. Uncertain if the hypoglycemia and hypothermia are related to this or a separate issue. Plan: - Move to ICU or IMCU for closer monitoring - Q1h finger stick glucose x 2 hours then q2h, start D5 1/2 NS after bolus complete - Monique hugger to warm patient - Blood unable to be obtained despite multiple attempts - warm patient and recheck. Obtain urine and blood cultures as well as cbc and cmp - d/c prn clonidine and prn hydralazine. Will plan for patient bp's in the 160- 180 range and not lower. Allow bp to increase and plan to start amlodipine at only 2.5 mg daily to see if this will manage the bp enough to maintain this range -Continue the Rocephin for now - if worsening or concerns may need to broaden coverage - Pt is on DVT prophy - both scd's and renal dosing lovenox Updated family in the hallway about how this is hypotension. They report the same things occurred in the long-term. Discussed the labile blood pressures , transfer and plan to allow bp's to be on the higher side. No questions at end of eval. Critical care time 35 minutes
[2017-11-17] MEDS ORDERED: Dextrose 5% in Water 1,000 ML IV PRN (19:28)
[2017-11-17 19:56] LABS: #Eosinphils 0.1 thou/uL (0.0-0.7); #Lymphocytes 1.7 thou/uL (1.20-3.40); #Monocytes 0.2 thou/uL (0.11-0.59); #Neutrophils 4.7 thou/uL (1.40-6.50); %Basophils 0.5 % (0.0-1.0); %Eosinophils 2.2 % (0.0-10.0); %Lymphocytes 24.6 % (21.0-51.0); %Monocytes 3.4 % (0.0-10.0); %Neutrophils 69.4 % (42.0-75.0); Hemoglobin 11.6 g/dL (12.0-16.0); Mean Corpuscular HGB CONC 33.1 g/dL (32.0-36.0); Mean Corpuscular Hemoglobin 30.2 pg (27.0-31.0); Mean Corpuscular Volume 91.2 fL (78.0-98.0); Mean Platelet Volume 6.7 fL (7.4-10.4); Platelet Count 315 thou/uL (130-400); RBC Distribution Width 12.7 % (11.5-14.5); Red Blood Cell (RBC) Count 3.84 mill/uL (4.20-5.40); White Blood Cell (WBC) Count 6.8 thou/uL (4.8-10.8)
[2017-11-17 20:16] LABS: ALT (SGPT) 8 U/L (8-55); AST (SGOT) 18 U/L (5-34); Albumin 2.7 g/dL (3.4-4.8); Alkaline Phosphatase 91 U/L (40-150); Anion Gap 12 mmol/L (10-20); BUN (Urea Nitrogen) 15 mg/dL (9.8-20.1); Bilirubin, Total 0.2 mg/dL (0.2-1.2); Calc. Creatinine Clearance 22 mL/min (70-130); Calcium 8.3 mg/dL (7.8-10.44); Carbon Dioxide 21 mmol/L (23-31); Chloride 108 mmol/L (98-107); Estimated GFR-MDRD 56; Globulin 2.8 g/dL (2.4-3.5); Glucose 259 mg/dL (83-110); Potassium 3.6 mmol/L (3.5-5.1); Protein, Total 5.5 g/dL (6.0-8.3); Sodium 137 mmol/L (136-145)
[2017-11-17] MEDS ORDERED: Norepinephrine 8 MG/0.9% NS 0 ML ONE (20:20)
--- NOTE | 2017-11-17 20:43 | PDOC.EVN ---
Event Note - Event Note Event Note: Informed by RN that family desires comfort measures after speaking with Dr. Quintero. pt remains hypotensive in ICU. Family at bedside, I confirmed this with one daughter. Comfort measures in place, code status changed. Family aware of anticipated .
[2017-11-17] MEDS ORDERED: clonazePAM 0.5 MG TAB PO SCH (21:00)
[2017-11-17] MEDS ORDERED: Atorvastatin Calcium 10 MG TAB PO SCH (21:00)
--- NOTE | 2017-11-17 23:33 | EKG ---
Test Reason : SYNCOPE Blood Pressure : / mmHG Vent. Rate : 114 BPM Atrial Rate : 114 BPM P-R Int : 128 ms QRS Dur : 068 ms QT Int : 326 ms P-R-T Axes : 058 042 265 degrees QTc Int : 449 ms Sinus tachycardia Left atrial enlargement T wave abnormality, consider inferior ischemia T wave abnormality, consider anterolateral ischemia Abnormal ECG Confirmed by SULY ROSS, ROZ Álvarez ([id number]), writer editor RODRÍGUEZ AZUL ([id number]) on 11/17/2017 11:33:03 PM Referred By: SANCHEZ TUBBS Confirmed By:ROZ TUBBS MD
[2017-11-18] MEDS ORDERED: Morphine IR Tab 15 MG TAB PO PRN (09:01)
--- NOTE | 2017-11-18 09:33 | PDOC.PN ---
- Subjective Encounter Start Date: 11/18/17 (f/u hypotension) Encounter Start Time: 09:15 Subjective: Pt overnight improved blood pressure and remained stable. Was -: transferred to medical floor with 3 family members at her side. -: Daughter reports pt stating abd pain earlier, only c/o knee pain now - Objective Resuscitation Status: Resuscitation Status DNR:Do Not Resuscitate Vital Signs & Weight: Vital Signs (12 hours) Temp Pulse Resp BP Pulse Ox 11/18/17 08:00 98.1 F 74 22 H 190/103 H 100 11/18/17 05:14 97.4 F L 98 16 94 L 11/18/17 04:00 97.4 F L 11/17/17 23:01 94.5 F L 76 16 93 L 11/17/17 23:00 105.1 F H Weight Admit Weight 89 lb 9 oz Weight 88 lb 3.2 oz Most Recent Monitor Data Heart Rate from ECG 99 NIBP 138/73 NIBP BP-Mean 101 Respiration from ECG 21 SpO2 97 I&O: 11/17/17 11/18/17 11/19/17 06:59 06:59 06:59 Intake Total 468 400 Output Total 0 Balance 468 400 Result Diagrams: 11/17/17 19:50 11/17/17 19:50 Additional Labs: Accuchecks 11/17/17 11/17/17 19:43 18:59 POC Glucose 239 H 52 L* Phys Exam - Physical Examination Constitutional: NAD arouses to voice and touch, able to answer some questions falls back asleep easily Respiratory: no wheezing, no rales Cardiovascular: RRR, no significant murmur Gastrointestinal: soft, positive bowel sounds Musculoskeletal: no edema Dx/Plan (1) Syncope Code(s): R55 - SYNCOPE AND COLLAPSE Status: Acute Qualifiers: Syncope type: unspecified Qualified Code(s): R55 - Syncope and collapse (2) Jugular vein thrombosis, right Code(s): I82.890 - ACUTE EMBOLISM AND THROMBOSIS OF OTHER SPECIFIED VEINS Status: Acute (3) Arthritis Code(s): M19.90 - UNSPECIFIED OSTEOARTHRITIS, UNSPECIFIED SITE Status: Chronic (4) TIA (transient ischemic attack) Status: Chronic (5) Anemia Code(s): D64.9 - ANEMIA, UNSPECIFIED Status: Chronic Qualifiers: Anemia type: unspecified type Qualified Code(s): D64.9 - Anemia, unspecified (6) CAD (coronary artery disease) Code(s): I25.10 - ATHSCL HEART DISEASE OF [place] CORONARY ARTERY W/O ANG PCTRS Status: Chronic Qualifiers: Coronary Disease-Associated Artery/Lesion type: [place] artery [place] vs. transplanted heart: [place] heart Associated angina: without angina Qualified Code(s): I25.10 - Atherosclerotic heart disease of [place] coronary artery without angina pectoris (7) H/O carotid endarterectomy Code(s): Z98.890 - OTHER SPECIFIED POSTPROCEDURAL STATES Status: Chronic (8) HLD (hyperlipidemia) Code(s): E78.5 - HYPERLIPIDEMIA, UNSPECIFIED Status: Chronic Qualifiers: Hyperlipidemia type: unspecified Qualified Code(s): E78.5 - Hyperlipidemia , unspecified - Plan * Events of yesterday - acute hypotension/hypoglycemia/hypothermia - transferred to the ICU. decision made by 3 POA's for comfort care and DNR status. Currently pt is hypertensive with bp in the 190's, pt resting comfortably - no signs of disturbance from this blood pressure. * * Discussed with family present the following plan: * - Stop checking bp as pt not showing signs of discomfrot for this. Stop meds that will lower blood pressure - as this will likely cause another episode similar to yesterday with a dramatic drop in blood pressure * Focus on comfort only - manage pain, agitation if present (none currently), foods as desired * [place] if needed - family reports one soaked brief today - monitor this * Here for 24 hours. Pt was at [facility] with [facility] - inform [facility] of patient's status. * If tomorrow pt remains stable, then consider return to [facility] if able with hospice support, based on availability on services and family's request. * Family is aware that end-of-life is anticipated, but uncertain of when this will occur - if in the next 24 hours, or longer. * * d/c dvt prophylaxis and decrease all interventions that will cause discomfort - such as moving patient. * * reviewed plan of care with RN and 3 family members present. No questions or further needs at end of eval.
--- NOTE | 2017-11-18 13:59 | PRG ---
DATE OF SERVICE: 11/18/2017 CHIEF COMPLAINT: Altered mental status. INTERVAL HISTORY: The patient still remains altered and she is elderly. I noted there was an event yesterday with significant hypotension which was recorded in the patient's chart. At this time, the patient's family is in the room and they are all keeping her comfortable. LABORATORY DATA: Current laboratory reports; no new reports since yesterday. PHYSICAL EXAMINATION: VITAL SIGNS: Her blood pressure is 158/88, pulse is 99, temperature 98.0, respiratory rate 18, O2 sa ts 98%. CHEST: Clear vesicular breathing. CARDIOVASCULAR: No murmurs. NEUROLOGIC: She seems very drowsy and does not follow any commands. IMPRESSION: Patient is an 87-year-old lady with advancing age and also multiple medical issues and s he seems to have had an event where a code was called and this was primarily hypotension with systoli c blood pressure of less than 90 and her blood pressure recorded was 68/42 and her current examinatio n shows a very frail and drowsy individual. At this time, there is not much else we can offer her. Her MRI scan of the brain shows chronic microvascular ischemic changes and parenchymal volume loss wi th compensatory dilatation of the ventricular system. She did not have confirmable seizures on the E EG and this was mostly motion artifact plus some increased frontal activity which can be seen when th e patient drowsy. At this time, I do not think it is necessary to keep her on Keppra since this is a recorded event with hypotension. I suspect her hypotension is the primary cause of these events whe re she is having alteration in level of consciousness along. RECOMMENDATIONS: Hold off on Keppra for now. Call Neurology if you have any further questions.
--- NOTE | 2017-11-18 18:23 | PDOC.EVN ---
Event Note - Event Note Event Note: checked in on patient - family reports she has been eating and talking. States that pt said her bowels havent moved. Will order colace and miralax. No chagne ot plan outlined earlier. More family to return tonight, will talk with them about re-assess in AM regarding further plan - back to nursing facility with [facility] vs other option to continue comfort care. Discussed we will not be treating blood pressure values, and in fact request bp not checked, we will only be treating patients sx. The goal is to avoid any significant change in bp which can lead to patient discomfort. No further needs. 19:10 - met with multiple family members in patient's room - Karolina is the lead spokesperson as Eduar. Discussed current condition - pt overall doing better and had a good day. Discussed unlikely to be sepsis as she has improved without antibiotics and yesterday's changes c/w rapidly dropping blood pressure. Discussed maintaining comfort care and not checking blood pressure any further - as pt doesnt tolerate treatment of this. Discussed further planning - they desire return to [facility] tomorrow (presuming no overnight events) with [facility] - who was taking care of the patient prior to this hospital admission. Discussed bowel medicines ordered and to let the nursing staff know if there are any needs. No questions or further needs at end of conversation.
[2017-11-18] MEDS ORDERED: Polyethylene Glycol 3350 17 GM Packet PO SCH (18:30)
[2017-11-18 19:34] VITALS: BP 180/112
[2017-11-18] MEDS: Docusate 100 MG CAP PO SCH (21:01)
[2017-11-19] MEDS: Docusate 100 MG CAP PO SCH (07:32)
[2017-11-19 08:33] VITALS: TEMP 98.2
--- NOTE | 2017-11-19 09:26 | PQF ---
DATE: 11/19 ATTN: DR. ZORAIDA SRIVASTAVA Please exercise your independent, professional judgment in responding to the clarification form. Clinical indicators are provided on the bottom of this form for your review. Please check appropriate box(s) to clarify if the following diagnosis has been ruled in or ruled out: LIKELY NSTEMI TYPE II [ ] Ruled in diagnosis [ ] Continue to treat [ ] Resolved [ ] Ruled out diagnosis [ ] Other diagnosis [ ] Unable to determine For continuity of documentation, please document condition throughout progress notes and discharge summary. Thank You. CLINICAL INDICATORS - SIGNS / SYMPTOMS / LABS PHYSICIAN H&P DOCUMENTATION 11/15: LAB DATA: CK 7.7 W/TROPONIN MILDLY ELEVATED AT 0.160 & 0.176. ...EKG WAS REVIEWED. THE PATIENT HAS SINUS TACHYCARDIA AT THE RATE 114 W/SOME T WAVES & T-WAVE ABNORMALITY, CONSIDER INFERIOR ISCHEMIA & ANTEROLATERAL ISCHEMIA. ASSESSMENT & PLAN: 4) BORDERLINE TROPONIN 0.16 X 2, THIS COULD BE R/T DEMETRIA. SECOND TROPONIN IS ABOUT THE SAME. EKG DOES HAVE SOME MILD CHANGES. ...LIKELY IS A NSTEMI TYPE 2 TROPONIN I: NO FURTHER MENTION OF NSTEMI TO DATE RISK FACTORS: 0.160, 0.176, 0.138 (11/15 & ) RISKS: ELEVATED TROPONINS MILD EKG CHANGES DEMETRIA TACHYCARDIA, DEHYDRATION TREATMENTS: TELEMETRY MONITORING IVF (1L NS IN ER) THANK YOU! Olga (This form is maintained as a part of the permanent medical record) 2014 [employer]. All Rights Reserved Olga Stratton RN, BSN [email or web address] Office: [phone] [facility] HEALTH SYSTEMLuis Miguel
[2017-11-19 11:52] VITALS: BMI 17.2
--- NOTE | 2017-11-19 12:27 | DIS ---
PRIMARY CARE PHYSICIAN: Dr. Jennifer Sarah DATE OF ADMISSION: 11/15/2017 DATE OF DISCHARGE: 11/19/2017 DISCHARGE DIAGNOSES: 1. Syncope and collapse suspected to be a seizure disorder. 2. Right acute internal jugular vein thrombosis. 3. Osteoarthritis, unspecified. 4. Transient ischemic attack, chronic. 5. Chronic anemia, unspecified. 6. Coronary artery disease, without angina pectoris. 7. History of carotid endarterectomy and cerebral vascular disease. 8. Hyperlipidemia, chronic. 9. Acute episode of hypotension secondary to labile blood pressure. 10. Hypoglycemia, transient. 11. Demand ischemia, present on admission. 12. Acute kidney injury, present on admission. 13. Metabolic encephalopathy, present on admission, resolved. 14. Alzheimer's type dementia. 15. Failure to thrive. 16. Sacrococcygeal stage 2 pressure ulcer, present on admission. 17. Moderate protein calorie malnutrition, chronic, present on admission. 18. Hypertensive urgency, present on admission, resolved. CONSULTATIONS: Neurology, Dr. Trevor Raines 11/16/2017 through 11/18/2017. PROCEDURES: 1. Echocardiogram 11/16/2017 that showed a poor study secondary to poor windows. 2. Ejection fraction of 55-60%. 3. Aortic stenosis of unclear severity due to poor images. 4. Mild to moderate MR. 5. Mild TR. 6. No evidence of thrombus. HISTORY AND PHYSICAL: Ms. Huber is an 87-year-old female who resides at [facility] who was brought to the emergency department for evaluation on 11/16/19 18 after having spells of decreased arousal. Workup in the emergency department was largely unremark able. She was placed as an inpatient status on admission for workup for possible seizures versus tra nsient ischemic attack. HOSPITAL COURSE: The patient was seen and examined by Dr. Muñoz. The patient was placed on inpat ient status to the stroke huerta. Neurology was consulted. The patient was seen by Dr. Raines on 11/16/2017. Recommended EEG and thought may be secondary to ac natalie on chronic dementia versus metabolic encephalopathy versus delirium from urinary tract infection versus possible seizures. The patient did well initially from 11/16/2017 to 11/18/2017, but got acutely altered again and a cod e was called. They recommend holding off on the Keppra on 11/18/2017, otherwise signed off. Today, the patient was stable, back to her normal content baseline self and was stable for discharge back on [facility]. DISCHARGE CONDITION: Stable. DISPOSITION: To be discharged [facility] under hospice with [facility] . DISCHARGE MEDICATIONS: Per hospice. Out of hospital DNR has been signed. DISCHARGE ACTIVITY: As tolerated. DISCHARGE DIET: Regular. FOLLOWUP APPOINTMENTS: With primary care physician as needed and with [facility] on arrival to [facility].
== END 2017-11-19 14:31 | disposition hospice, inpatient (51) | DRG 314 ==
LOC: ERS 13:19 → 2NO 17:15 → ERS 18:19 → CCU 11-17 19:13 → T4-B 11-18 05:08
PROVIDERS: ADMIT Internal Medicine; ATTEND Internal Medicine
DX: I95.9 Hypotension, unspecified (principal); G93.41 Metabolic encephalopathy; I82.C11 Acute embolism and thrombosis of right internal jugular vein; G45.9 Transient cerebral ischemic attack, unspecified; I24.8 Other forms of acute ischemic heart disease; N17.9 Acute kidney failure, unspecified; E44.0 Moderate protein-calorie malnutrition; Z68.1 Body mass index [BMI] 19.9 or less, adult; N39.0 Urinary tract infection, site not specified; G40.909 Epilepsy, unspecified, not intractable, without status epilepticus; D64.9 Anemia, unspecified; I25.10 Atherosclerotic heart disease of native coronary artery without angina pectoris; E78.5 Hyperlipidemia, unspecified; E16.2 Hypoglycemia, unspecified; G30.9 Alzheimer's disease, unspecified; F02.80 Dementia in other diseases classified elsewhere, unspecified severity, without behavioral disturbance, psychotic disturbance, mood disturbance, and anxiety; R62.7 Adult failure to thrive; L89.152 Pressure ulcer of sacral region, stage 2; I16.0 Hypertensive urgency; E86.0 Dehydration; H54.8 Legal blindness, as defined in USA
CPT/HCPCS: 36415; 36416; 51701; 70450; 70551; 71045; 80048; 80053; 80061; 81003; 81015; 82553; 83735; 83880; 84100; 84484; 85025; 87040; 87077; 87086; 87149; 87186; 93005; 93306; 93880; 95816; 95819; 96361; 96365; 96375; A4353; G8996-GN-CJ; G8997-GN-CJ; J0360; J0696; J1650; J1953; J7050